=== PATIENT | male | born 1960 | race Caucasian/White ===

== ENCOUNTER 2024-01-15 06:14 | Day surgery (SDC) | payer OTHER, SELFPAY ==
[2024-01-15 08:05] VITALS: BMI 35.4
[2024-01-15 08:21] VITALS: BP 160/82
[2024-01-15 08:30] VITALS: BMI 35.4
[2024-01-15 10:30] VITALS: BP 136/72
[2024-01-15 10:31] VITALS: BP 136/72
[2024-01-15 10:45] VITALS: BP 120/74
[2024-01-15 11:00] VITALS: BP 122/72
== END 2024-01-15 11:00 | disposition home or self-care (01) ==
LOC: GI 06:14
PROVIDERS: ATTENDING PHYSICIAN Specialist
DX: Z12.11 Encounter for screening for malignant neoplasm of colon (principal); D12.3 Benign neoplasm of transverse colon; D12.4 Benign neoplasm of descending colon; K63.5 Polyp of colon; K57.30 Diverticulosis of large intestine without perforation or abscess without bleeding; Z86.010 Personal history of colon polyps; Z98.0 Intestinal bypass and anastomosis status; Z79.01 Long term (current) use of anticoagulants
CPT/HCPCS: 45385; 45380; 88305

== ENCOUNTER → 2025-04-29 07:21 | Outpatient (REF) | payer OTHER, SELFPAY | LOC: MRI 3T 07:21 | PROVIDERS: ATTENDING PHYSICIAN Specialist; FAMILY PHYSICIAN Internal Medicine | DX: R97.20 Elevated prostate specific antigen [PSA] (principal) | CPT/HCPCS: 72197; A9575 ==

== ENCOUNTER 2025-05-14 21:50 | Inpatient (IN) | payer OTHER, SELFPAY ==
[2025-05-14] VITALS (16 sets, daily range): BP systolic 70–114; BP diastolic 42–84; PULSE 4–122; BMI 35.8
[2025-05-14] MEDS: DUONEB 9 ML INH (17:39)
--- NOTE | 2025-05-14 17:42 | ED.GENMED ---
History of Present Illness
<DANIEL Ellis Jr. Last Filed: 05/14/25 20:09>
General
Chief Complaint: Breathing Problem
Source: patient and ambulance crew
Exam Limitations: none
Time Seen by Provider: 05/14/25 17:31
Nursing documentation reviewed up to this point in time: agreed with
History of Present Illness
History of Present Illness:
65-year-old male past ministry of COPD, A-fib currently on Xarelto, hypertension, cardiomyopathy presenting to the emergency department today with concerns of shortness of breath that seem to be abrupt today also noted to have a low-grade fever
according to EMS. Of note also had a prostate biopsy yesterday but was not fully sedated for this.
Past History
<Terrence Alvarez Jr., PA-C - Last Filed: 05/14/25 20:09>
Past History
ED Past Medical History: Arrthythmia (Paroxysmal atrial fibrillation), Asthma, COPD, GERD, HTN, Hypercholesterolemia and Other (Villous adenoma colon polyp)
ED Past Surgical History: Bowel resection (Transverse colon resection 12/18/2011, for removal of villous adenomatous polyp), Cardiac (Radiofrequency ablation of A. fib) and Cholecystectomy
Social History
Tobacco: Smoker
Alcohol: None
Drug: None
Personal:
Living: with family
Employment: Employed
Family History
Family History: Hypertension
Review of Systems
<DANIEL Ellis Jr. Last Filed: 05/14/25 20:09>
Review of Systems
Allergies reviewed?: Yes
All Other Systems: ROS reviewed and negative except as documented in HPI and ROS
Phy Exam
<DANIEL Ellis Jr. Last Filed: 05/14/25 20:09>
Physical Exam
Physical Exam:
GENERAL: Alert ,
EYE: pupils equal and reactive
NECK: Supple, no significant adenopathy.
ENT: o/p clr, mmm.
CARDIAC: Regular rate and rhythm .
LUNGS: Decreased lung sounds appears to have some distress with breathing out
ABDOMEN: Soft, without focal tenderness, no r/g, no cvat
NEUROLOGICAL: Alert and oriented, no focal neuro deficits
SKIN: Warm and dry, skin intact.
MUSCULOSKELETAL: No edema, well perfused.
PSYCH: Normal and appropriate interaction.
Scores
<Terrence Alvarez Jr., PA-C - Last Filed: 05/14/25 20:09>
Heart Failure Risk
Heart Failure Risk Score: Not Applicable
Course
<Terrence Alvarez Jr., PA-C - Last Filed: 05/14/25 20:09>
Orders/Labs/Results
Orders:
Orders
05/14/25 17:31
CR Chest Portable - 1 View Urgent
Comment:
Reason For Exam: resp distress
Reason Study Needs to be Portable: Patient Unstable
05/14/25 17:32
Electrocardiogram (*1) Stat
Reason for Study: Other
Other Reason for Exam: pneumonia
Cardiac Monitoring- Treatment ONCE
EKG- Treatment ONCE
Ipratropium/Albuterol Sulfate [Duoneb] 9 ml INH R NOW ONE
05/14/25 17:45
COVID-19 Antigen Urgent
Source: Nasal Swab
Complete Blood Count/With Diff Urgent
Comprehensive Metabolic Panel Urgent
Lactic Acid Q4H
Comment: CANCEL 2nd LACTIC ACID IF 1st LACTIC ACID IS LESS THAN 2
NT-proBNP Urgent
Troponin I Urgent
05/14/25 18:25
0.9% Sodium Chloride 1000 ml [Nss] 1,000 ml IV BOLUS
CefTRIAXone [Rocephin] 2,000 mg IV NOW STA
05/14/25 18:30
Sterile Water [Sterile Water For Injection] 20 ml .ROUTE .STK-MED
05/14/25 18:37
Acetaminophen 1000MG/100Ml [Ofirmev] 1,000 mg in 100 ml IV ONCE
Acetaminophen IV Indication:: No KS & No Enteral Access
05/14/25 18:51
Doxycycline Hyclate [Vibramycin] 100 mg 0.9% Sodium Chloride 250 ml [Nss] 250 ml IV NOW
05/14/25 19:01
MetroNIDAZOLE 500 MG/100 ML [Flagyl 500 mg] 100 ml IV NOW
05/14/25 19:07
Vancomycin [Vancocin] 2,000 mg 0.9% Sodium Chloride 500 ml [Nss] 500 ml IV NOW
05/14/25 19:12
Urinalysis Reflex To Culture Urgent
Date Specimen was Collected: 05/14/25
Time Specimen was Collected: 19:01
Urine Microscopic Reflex Cult Urgent
Urine Culture Urgent
ROSAMARIA Source: U
Specimen Description:
Date Specimen was Collected: 05/14/25
Time Specimen was Collected: 19:01
05/14/25 20:50
Admit/Transfer Patient As Directed
Co-Sign Provider:
Level of Care: Inpatient admission
Assign to:: IMU- Intermediate Care
Physician / Group: Leta Morales
Diagnosis: sepsis, prostatitis
Reason for Hospitalization: sepsis, prostatitis
Expected length of stay greater than two midnights?: Yes
ELOS- Estimated Length of Stay in days: 3
I certify the patient meets the requirements for IP care: Yes
PRN Pain Medication Management As Directed
May give lesser potent ordered pain med per pt: Yes
preference::
Protocol:: Medication orders for pain may be administered in a
manner that supports deferring to patient preference
when the pt is:
- Requesting an ordered lesser potent pain medication.
Least to most potent pain medications are defined
as: acetaminophen < NSAID < tramadol < opioids
(morphine, oxycodone, hydromorphone).
- Requesting a lesser dose of the same medication IF
ORDERED.
- Requesting a less intrusive route of administration
if both routes are prescribed by the provider (PO <
IV).
05/14/25 20:52
Code Status As Directed
Resuscitation Status: Full Code
05/14/25 22:02
0.9% Sodium Chloride 1000 ml [Nss] 1,000 ml IV 100 mls/hr
05/14/25 23:14
Lactic Acid Q4H
Comment: CANCEL 2nd LACTIC ACID IF 1st LACTIC ACID IS LESS THAN 2
05/17/25 11:00
DC Protocol for Telemetry ONCE
Abnormal Lab Results
05/14/25 05/14/25
17:45 19:12
WBC 3.4 L 10^3/uL
(4.8-10.8)
RBC 4.05 L 10^6/uL
(4.70-6.10)
Hgb 12.1 L g/dL
(13.0-18.0)
Hct 36.9 L %
(39.0-52.0)
MCHC 32.8 L g/dL
(33.0-37.0)
Absolute Lymphs (auto) 0.4 L 10^3/uL
(1.2-3.4)
Absolute Monos (auto) 0.0 L 10^3/uL
(0.1-0.6)
Neutrophils % 85.7 H %
(42.2-75.2)
Lymphocytes % 10.5 L %
(20.5-51.1)
Monocytes % 0.6 L %
(1.7-9.3)
Carbon Dioxide 31 H mmol/L
(22-30)
Creatinine 0.6 L mg/dL
(0.7-1.3)
Lactic Acid 2.3 H mmol/L
(0.7-2.0)
Ur Occult Blood Reflex 4+ A
(Negative)
Leukocyte Esterase Rfl 3+ A
(Negative)
Urine RBC >100 A /HPF
(0-2)
Urine WBC (Reflex) 40-50 A /HPF
(0-5)
Urine Bacteria (Reflex) Moderate A
(Negative)
Urine Albumin (Reflex) 2+ A
(Neg - Trace)
05/14/25 17:45
05/14/25 17:45
Vital Signs
Initial and Last Documented VS:
Initial Vital Signs
Temp Pulse Resp BP Pulse Ox
101.2 F H 123 30 114/84 92
05/14/25 17:37 05/14/25 17:37 05/14/25 17:37 05/14/25 17:37 05/14/25 17:37
Last Documented Vital Signs
Temp Pulse Resp BP Pulse Ox
101.2 F H 79 27 82/53 98
05/14/25 17:37 05/14/25 23:30 05/14/25 23:30 05/14/25 23:25 05/14/25 23:30
<Nader Hernandez, DO - Last Filed: 05/14/25 23:39>
Orders/Labs/Results
Orders:
Orders
05/14/25 17:31
CR Chest Portable - 1 View Urgent
Comment:
Reason For Exam: resp distress
Reason Study Needs to be Portable: Patient Unstable
05/14/25 17:32
Electrocardiogram (*1) Stat
Reason for Study: Other
Other Reason for Exam: pneumonia
Cardiac Monitoring- Treatment ONCE
EKG- Treatment ONCE
Ipratropium/Albuterol Sulfate [Duoneb] 9 ml INH R NOW ONE
05/14/25 17:45
COVID-19 Antigen Urgent
Source: Nasal Swab
Complete Blood Count/With Diff Urgent
Comprehensive Metabolic Panel Urgent
Lactic Acid Q4H
Comment: CANCEL 2nd LACTIC ACID IF 1st LACTIC ACID IS LESS THAN 2
NT-proBNP Urgent
Troponin I Urgent
05/14/25 18:25
0.9% Sodium Chloride 1000 ml [Nss] 1,000 ml IV BOLUS
CefTRIAXone [Rocephin] 2,000 mg IV NOW STA
05/14/25 18:30
Sterile Water [Sterile Water For Injection] 20 ml .ROUTE .STK-MED
05/14/25 18:37
Acetaminophen 1000MG/100Ml [Ofirmev] 1,000 mg in 100 ml IV ONCE
Acetaminophen IV Indication:: No KS & No Enteral Access
05/14/25 18:51
Doxycycline Hyclate [Vibramycin] 100 mg 0.9% Sodium Chloride 250 ml [Nss] 250 ml IV NOW
05/14/25 19:01
MetroNIDAZOLE 500 MG/100 ML [Flagyl 500 mg] 100 ml IV NOW
05/14/25 19:07
Vancomycin [Vancocin] 2,000 mg 0.9% Sodium Chloride 500 ml [Nss] 500 ml IV NOW
05/14/25 19:12
Urinalysis Reflex To Culture Urgent
Date Specimen was Collected: 05/14/25
Time Specimen was Collected: 19:01
Urine Microscopic Reflex Cult Urgent
Urine Culture Urgent
ROSAMARIA Source: U
Specimen Description:
Date Specimen was Collected: 05/14/25
Time Specimen was Collected: 19:01
05/14/25 20:50
Admit/Transfer Patient As Directed
Co-Sign Provider:
Level of Care: Inpatient admission
Assign to:: IMU- Intermediate Care
Physician / Group: Leta Morales
Diagnosis: sepsis, prostatitis
Reason for Hospitalization: sepsis, prostatitis
Expected length of stay greater than two midnights?: Yes
ELOS- Estimated Length of Stay in days: 3
I certify the patient meets the requirements for IP care: Yes
PRN Pain Medication Management As Directed
May give lesser potent ordered pain med per pt: Yes
preference::
Protocol:: Medication orders for pain may be administered in a
manner that supports deferring to patient preference
when the pt is:
- Requesting an ordered lesser potent pain medication.
Least to most potent pain medications are defined
as: acetaminophen < NSAID < tramadol < opioids
(morphine, oxycodone, hydromorphone).
- Requesting a lesser dose of the same medication IF
ORDERED.
- Requesting a less intrusive route of administration
if both routes are prescribed by the provider (PO <
IV).
05/14/25 20:52
Code Status As Directed
Resuscitation Status: Full Code
05/14/25 22:02
0.9% Sodium Chloride 1000 ml [Nss] 1,000 ml IV 100 mls/hr
05/14/25 23:14
Lactic Acid Q4H
Comment: CANCEL 2nd LACTIC ACID IF 1st LACTIC ACID IS LESS THAN 2
05/17/25 11:00
DC Protocol for Telemetry ONCE
Abnormal Lab Results
05/14/25 05/14/25
17:45 19:12
WBC 3.4 L 10^3/uL
(4.8-10.8)
RBC 4.05 L 10^6/uL
(4.70-6.10)
Hgb 12.1 L g/dL
(13.0-18.0)
Hct 36.9 L %
(39.0-52.0)
MCHC 32.8 L g/dL
(33.0-37.0)
Absolute Lymphs (auto) 0.4 L 10^3/uL
(1.2-3.4)
Absolute Monos (auto) 0.0 L 10^3/uL
(0.1-0.6)
Neutrophils % 85.7 H %
(42.2-75.2)
Lymphocytes % 10.5 L %
(20.5-51.1)
Monocytes % 0.6 L %
(1.7-9.3)
Carbon Dioxide 31 H mmol/L
(22-30)
Creatinine 0.6 L mg/dL
(0.7-1.3)
Lactic Acid 2.3 H mmol/L
(0.7-2.0)
Ur Occult Blood Reflex 4+ A
(Negative)
Leukocyte Esterase Rfl 3+ A
(Negative)
Urine RBC >100 A /HPF
(0-2)
Urine WBC (Reflex) 40-50 A /HPF
(0-5)
Urine Bacteria (Reflex) Moderate A
(Negative)
Urine Albumin (Reflex) 2+ A
(Neg - Trace)
05/14/25 17:45
05/14/25 17:45
Vital Signs
Initial and Last Documented VS:
Initial Vital Signs
Temp Pulse Resp BP Pulse Ox
101.2 F H 123 30 114/84 92
05/14/25 17:37 05/14/25 17:37 05/14/25 17:37 05/14/25 17:37 05/14/25 17:37
Last Documented Vital Signs
Temp Pulse Resp BP Pulse Ox
101.2 F H 79 27 82/53 98
05/14/25 17:37 05/14/25 23:30 05/14/25 23:30 05/14/25 23:25 05/14/25 23:30
<Terrence Alvarez Jr., PA-C - Last Filed: 05/14/25 20:09>
MDM/Problems Addressed
MDM/Problems Addressed:
65-year-old male presenting to the emergency department today with concerns of shortness of breath occurred this morning coming in with respiratory distress tachypneic febrile heart rate in the 120s. Patient did have a recent biopsy so prostatitis
was considered. Urinalysis looking potentially consistent with urinary tract infection and potentially from the prostate. Was started on broad-spectrum antibiotics including anaerobes vancomycin as well as ceftriaxone. Respiratory status seem to
improve greatly after receiving fluids and antibiotics. Respiratory process causing primary symptoms seems to be less likely at this point. Patient with significant improvement of symptoms while here. Admitted for further treatment and monitoring.
<Terrence Alvarez Jr., PA-C - Last Filed: 05/14/25 20:09>
*Pulse Oximetry
SaO2: 92
Nasal Cannula flow liters per minute: 4
<Nader Hernandez DO - Last Filed: 05/14/25 23:39>
*Pulse Oximetry
Patient hypoxic: yes
*Critical Care Note
Total Time (30-74mins, 75-104mins- exclusive of procedures): 40 minutes
ED Attending Note
<Terrence Alvarez Jr., PA-C - Last Filed: 05/14/25 20:09>
-
Portions of this chart may have been created with voice recognition software.� Occasional wrong word or��sound alike� substitutions may have occurred due to the inherent limitations of voice recognition software.
<Nader Hernandez DO - Last Filed: 05/14/25 23:39>
ED Attending Note
Patient seen and examined by attending physician: Yes
I performed the substantive portion of visit, reviewed & personally made and approve the management plan that is documented in note by myself or ROHIT.: Yes
ED Attending Note:
66-year-old male present acutely short of breath does have history COPD and suspect COPD exacerbation however also found to be febrile and in light of recent prostate biopsy concern for urinary tract infection/prostatitis. In light of evidence of
sepsis given IV fluids, broad-spectrum antibiotics blood culture sent. Admit
Discharge Plan
Departure
Patient Disposition: Admit
Date of Disposition: 05/14/25
Time of Disposition: 20:00
Admit to: Med/Surg
Admit to doctor: Carmen
Presentation/result/management discussed w/ accepting MD/DO: Hospitalist
Patient with high blood pressure during this ER visit?: No
Condition: Good
Covid-19: Not Applicable
Discharge Problem:
Acute prostatitis, Sepsis, Acute exacerbation of chronic obstructive pulmonary disease
Interventions
Interventions:
*Risk Screen - Suicide Last Done: 05/14/25 17:30
*General Assessment Last Done: 05/14/25 17:30
*Neglect/Abuse Screening Last Done: 05/14/25 17:30
*ED- Fall Risk Assessment Last Done: 05/14/25 17:30
*ED COVID-19 Vaccine History Last Done: 05/14/25 17:30
ED- Cardiac Assessment Last Done: 05/14/25 18:19
ED- Pulmonary Assessment Last Done: 05/14/25 18:19
[2025-05-14 17:53] LABS: Hematocrit 36.9 % (39.0-52.0); Hemoglobin 12.1 g/dL (13.0-18.0); Mean Corp Hgb Conc. 32.8 g/dL (33.0-37.0); Mean Corpuscular Volume 91.1 fL (80.0-94.0); Nucleated Red Blood Cells % 0 % (-); Platelet Count 186 10^3/uL (130-400); Red Cell Dist. Width 13.6 % (11.5-14.5)
[2025-05-14 18:08] LABS: ALT (SGPT) 17 U/L (0-50); AST (SGOT) 28 U/L (17-59); Albumin 4.6 g/dl (3.5-5.0); Alkaline Phosphatase 85 U/L (38-126); Blood Urea Nitrogen 15 mg/dl (9-20); Calcium 9.3 mg/dl (8.4-10.2); Carbon Dioxide 31 mmol/L (22-30); Chloride 99 mmol/L (98-107); Estimated Creatinine Clearance > 125 ml/min; Glucose 82 mg/dl (70-99); Potassium 3.9 mmol/L (3.5-5.1); Sodium 138 mmol/L (135-145); Total Protein 7.2 g/dl (6.3-8.2); eGFR > 60.00
[2025-05-14 18:09] LABS: COVID-19 Antigen Negative (Negative)
[2025-05-14 18:18] LABS: Troponin I < 0.012 ng/ml
[2025-05-14] MEDS: ROCEPHIN 2000 MG IV (18:34)
[2025-05-14] MEDS: NSS 1000 IV ×3 (18:34→23:05)
[2025-05-14] MEDS: OFIRMEV 100 IV (18:47)
[2025-05-14] MEDS: FLAGYL 500 MG 100 IV (19:05)
[2025-05-14 19:27] LABS: Urine Character Cloudy (Clear)
[2025-05-14 19:43] LABS: Urine Red Blood Cell >100 /HPF (0-2); Urine Squamous Cell 0-2 /LPF (Few)
[2025-05-14 19:44] LABS: Urine White Cell 40-50 /HPF (0-5)
--- NOTE | 2025-05-14 19:55 | HPS.HSE ---
Family Physician
-
Family Physician: Mark Norwood
Chief Complaint
-
shortness of breath and rigors
History of Present Illness
Patient is a 65-year-old male with past medical history significant for paroxysmal atrial fibrillation, chronic HFpEF, essential hypertension, hyperlipidemia and COPD who presented to [facility] ED for evaluation of shortness of breath and rigors. Patient
states that he was at store earlier today when he had an abrupt onset of shortness of breath with rigors. By the time he got home he had call 911 as he was 'shaking so bad, I never danced like that before.' He reports biopsy yesterday of
prostate. He stated that he was started on an antibotic on Sunday prior to procedure and was scheduled to complete it Sunday, he did not recall name, said he has taken as prescribed.
Medical History
Past Medical History
Past Medical History: Reports Other
Additional Past Medical History:
paroxysmal atrial fibrillation
chronic HFpEF
essential hypertension
hyperlipidemia
COPD
obstructive sleep apnea
colon cancer
Past Surgical History: Reports Other
Additional Past Surgical History:
Cervical Laminectomy
Lumbosacral Laminectomy / Fusion
Colon Resection
Cholecystectomy
Social History
Tobacco: Smoker (2 packs per day, approximate 100 pack year history )
Alcohol: Daily (few highballs per day, no alcohol today )
Drug: None
Personal:
Living: With Family
Employment: Retired
Family History
Family History: Other (Mother: Lung Cancer; Father: CAD, DM, HTN, Alcohol-Use Disorder, Throat Cancer)
Allergies / Home Medications
Allergies reflects when Allergies were last updated in [facility].
Home Medications with original date entered in [facility]
Allergy/Medication List:
Allergies
Allergy/AdvReac Type Severity Reaction Status Date / Time
Beta-Blockers Allergy Anaphylaxis Verified 05/14/25 17:34
(Beta-Adrenergic Bloc
clarithromycin Allergy Rash Verified 05/14/25 17:34
(Clarithromycin)
fluticasone propionate (From Allergy mouth Verified 05/14/25 17:34
Advair Diskus) became
sensitive,
burning
salmeterol xinafoate (From Allergy mouth Verified 05/14/25 17:34
Advair Diskus) became
sensitive,
burning
Home Medications
atorvastatin 40 mg tablet 40 mg PO DAILY High Cholesterol 10/25/12
rivaroxaban 20 mg tablet (Xarelto) 20 mg PO DAILY atrial fibrillation 03/30/18
omeprazole 20 mg capsule,delayed release 20 mg PO DAILY Gastrointestinal Issue 10/17/18
verapamil 120 mg tablet,extended release 120 mg PO DAILY Blood Pressure 10/17/18
furosemide 40 mg tablet 40 mg PO DAILY Fluid Retention/Swelling 05/30/19
levalbuterol HCl 1.25 mg/3 mL solution for nebulization 1.25 mg inhalation R Q6 COPD 09/10/23
lisinopril 10 mg tablet 10 mg PO DAILY Blood Pressure 09/10/23
guaifenesin 600 mg tablet, extended release 12 hr (Mucinex) 600 mg PO BID #20 tabs 09/12/23
ascorbate calcium (vitamin C) 500 mg tablet 1,000 mg PO DAILY 05/14/25
fluticasone fur. 100 mcg-umeclid 62.5 mcg-vilant 25 mcg inhalat.powder (Trelegy Ellipta) 1 inh inhalation R DAILY 05/14/25
psyllium 1 packet PO DAILY 05/14/25
Review of Systems
-
History Source: Patient
Constitutional: Reports Fever and Chills
EENT: Denies Sore Throat
Respiratory: Reports Cough and Trouble Breathing
Cardiac: Denies Chest Pain or Palpitations
Abdomen/GI: Denies Nausea, Vomiting or Diarrhea
: Denies Dysuria, Frequency or Flank Pain
Neurological: Denies Dizzy or Weakness
Endocrine: Denies Polyuria or Polydipsia
Psych: Reports Anxiety
Physical Exam
Vital Signs
Vital Signs
Temp Pulse Resp BP Pulse Ox
101.2 F H 107 24 92/53 95
05/14/25 17:37 05/14/25 19:30 05/14/25 19:30 05/14/25 18:18 05/14/25 19:30
Physical Exam
General: Well Developed, Well Nourished, No Apparent Distress, Conversant and Obese
HEENT: NormoCephalic, Moist mucous membranes and Atraumatic
Respiratory: Clear and Decreased Breath Sounds
Cardiac: S1/S2 and Regular Rhythm
Breast: Deferred by me
GI: Soft, Non Tender, Non Distended and Normal Bowel Sounds; No Organomegaly
Rectal: Deferred by Provider
Genito-urinary: Deferred by me
Musculoskeletal: No Clubbing, No Cyanosis and No Edema
Skin: Warm and IV/Catheter Site
Neuro: Awake, AO x 3 and Nonfocal/grossly intact
Psych: Anxious
Laboratory Results
-
05/14/25 17:45
05/14/25 17:45
Laboratory Results
Lactic Acid 2.3 mmol/L (0.7-2.0) H 05/14/25 17:45
Total Bilirubin 0.8 mg/dl (0.2-1.3) 05/14/25 17:45
AST 28 U/L (17-59) 05/14/25 17:45
ALT 17 U/L (0-50) 05/14/25 17:45
Alkaline Phosphatase 85 U/L (38-126) 05/14/25 17:45
Troponin I < 0.012 ng/ml 05/14/25 17:45
Data Reviewed
-
Diagnostic Radiology: Report Reviewed by me (CXR: Mild pulmonary vascular congestion.)
Medical Tests (Nuc Med, Echo, EKG etc): Report Reviewed by me (KG: SINUS TACHYCARDIA LEFT ANTERIOR FASCICULAR BLOCK ST and T WAVE ABNORMALITY, CONSIDER INFEROLATERAL ISCHEMIA)
Lab Data: Labs Reviewed by me (WBC 3.4, Neut 85.7, lactic 2.3)
Impression/Plan
-
IMPRESSION/PLAN:
#sepsis likely 2/2 prostatitis
WBC 3.4, Neut 85.7, lactic 2.3
CXR: Mild pulmonary vascular congestion.
EKG: SINUS TACHYCARDIA
LEFT ANTERIOR FASCICULAR BLOCK
ST and T WAVE ABNORMALITY, CONSIDER INFEROLATERAL ISCHEMIA
prostate biopsy yesterday 05/14/2025
- Admit to IMU
- IV zosyn
- IVF NSS 80cc/hr
- trend lactic acid
- supportive care
#paroxysmal atrial fibrillation
- continue Xarelto and verapamil
#chronic HFpEF
- daily weights
- I & Os
- continue furosemide
#essential hypertension
- continue lisinopril
#hyperlipidemia
- continue atorvastatin
#COPD
- continue Trelegy, Mucinex and levalbuterol
#obstructive sleep apnea
#colon cancer
Code status: full code
DVT Prophylaxis: Xarelto
[2025-05-14] MEDS: VANCOCIN 540 MG IV (20:10)
--- NOTE | 2025-05-14 20:58 | W.PN.UPDATE ---
Update Note
Progress Note Update
Patient seen with [employer]. I agree with the findings on history and physical. I concur with assessment and plan.
Briefly, this is a 65-year-old with past medical history significant for atrial fibrillation on anticoagulation, COPD on 2 L nocturnal home O2, hypertension, hyperlipidemia, diastolic CHF who presents to the emergency department with fevers rigors
and chills after having a prostatic biopsy yesterday.
Patient reported that he been on prophylactic antibiotics since Sunday. Had a procedure done yesterday. [place] well immediately after procedure but today patient started having rigors and chills and felt short of breath at the same time. He denied
any cough. Denies any palpitations or chest pain. He did have some episode of hematuria after the procedure but not currently.
He arrived in the emergency department with temp of 100.9, now 101.2, blood pressure was 90/50 with a pulse rate of 101. Is satting 88% on room air. His ECG shows sinus tachycardia at a rate of 103, troponin was negative. X-ray shows no pulmonary
congestion but otherwise unremarkable. CBC shows a leukopenia with a white count of 3.4 but otherwise CBC is unremarkable. His electrolytes BUN/creatinine were normal. His UA was markedly positive except for negative nitrites.
Assessment and plan
Patient with acute onset of fever chills and rigors, leukopenia and positive UA status post prostate biopsy concerning for acute iatrogenic prostatitis. He been on antibiotics since Sunday for prevention. Sepsis with hypotension.
- Admit to IMU
- Blood cultures, urine culture
- IV Zosyn for now for acute prostatitis in the setting of prostatic biopsy (rectal approach)
- IV fluids for sepsis and started low dose pressors
- holding lisinopril and lasix
COPD -patient with chronic emphysema on nocturnal home O2 currently satting 88% on room air without any acute pulmonary changes. He is not wheezing and has no new productive cough. Do not suspect acute COPD exacerbation
- Zosyn as above
- Continue his home inhalers and no indication for acute steroids at this time
Atrial fibrillation
- Restart Xarelto 48 hours after procedure
- on verapamil (will hold in am if remains on pressors)
Hypertension
- Hold lisinopril for now
Diastolic heart failure -euvolemic
- Monitor I's and O's
- Continue Lasix in the morning with hold parameters for SBP less than 100
DVT prophylaxis�on Xarelto, while not taking Xarelto continue with heparin subcu
CODE STATUS�full code
[2025-05-14] MEDS: LEVOPHED 250 IV (23:06)
[2025-05-15] VITALS (38 sets, daily range): BP systolic 87–121; BP diastolic 48–73; BMI 36.6; BMI 36.2
--- NOTE | 2025-05-15 00:10 | PTCARENOTE ---
Pt arrived to floor on stretcher from ED. Slid over to bed with assistance. NSS bolus infusing into RAC and Levophed @ 3mcg infusing into RFA; BP checked and MAP < 65, increased levo to 4mcg. Pt denies pain however reports abdominal discomfort
related to gas and recent loose stool. Pt AAO x 3; Pt dyspenic at rest and noted pursed lipped breathing, Lungs with ins wheeze and rhonchi throughout. Pt oriented to room, call lynch within reach. Will continue to monitor and assess.
[2025-05-15] MEDS: ZOSYN 50 IV ×4 (02:20→21:46)
[2025-05-15 05:33] LABS: Hematocrit 31.6 % (39.0-52.0); Hemoglobin 10.4 g/dL (13.0-18.0); Mean Corp Hgb Conc. 32.9 g/dL (33.0-37.0); Mean Corpuscular Volume 92.1 fL (80.0-94.0); Platelet Count 172 10^3/uL (130-400); Red Cell Dist. Width 14.1 % (11.5-14.5)
[2025-05-15 05:49] LABS: Blood Urea Nitrogen 22 mg/dl (9-20); Calcium 7.8 mg/dl (8.4-10.2); Carbon Dioxide 26 mmol/L (22-30); Chloride 103 mmol/L (98-107); Estimated Creatinine Clearance 83 ml/min; Glucose 113 mg/dl (70-99); Potassium 3.6 mmol/L (3.5-5.1); Sodium 136 mmol/L (135-145); eGFR > 60.00
[2025-05-15] MEDS: DUONEB 3 ML INH (06:05)
[2025-05-15] MEDS: SPIRIVA RESPIMAT 2.5 MCG INH (07:35)
[2025-05-15] MEDS: SYMBICORT 80/4.5 MCG INHALER 2 PUFF INH ×2 (07:36→19:22)
[2025-05-15] MEDS: MUCINEX 600 MG PO ×2 (08:22→19:37)
[2025-05-15] MEDS: METAMUCIL, KONSYL 1 PACKET PO (08:22)
[2025-05-15] MEDS: XARELTO 20 MG PO (08:22)
[2025-05-15] MEDS: PROTONIX 40 MG PO (08:22)
[2025-05-15] MEDS: LIPITOR 40 MG PO (08:22)
--- NOTE | 2025-05-15 09:02 | W.PN.HOSP.TC ---
Today's Communication/Plan
-
Continue with Zosyn
Blood cultures x 2
Possible transfer to telemetry
Assessment / Plan
Assessment / Plan
Assessment and plan
Patient with acute onset of fever chills and rigors, leukopenia and positive UA status post prostate biopsy concerning for acute iatrogenic prostatitis. He been on antibiotics since Sunday for prevention. Sepsis with hypotension.
- Improved hemodynamics. Currently vasopressors on hold to see blood pressure response.
- Urine culture pending. Do not see blood cultures send-ordered set of blood cultures this morning.
- Continue with IV Zosyn for now for acute prostatitis in the setting of prostatic biopsy (rectal approach). Do not see the reason for MRSA coverage as patient already improving with 24 hours on Zosyn
- Follow culture data. Follow white count.
- holding lisinopril and lasix
COPD -patient with chronic emphysema on nocturnal home O2 currently satting 88% on room air without any acute pulmonary changes. He is not wheezing and has no new productive cough. Do not suspect acute COPD exacerbation
- Zosyn as above
- Continue his home inhalers and no indication for acute steroids at this time
Atrial fibrillation
- Restart Xarelto 48 hours after procedure
- on verapamil-hold till hemodynamics are stable
Hypertension
- Hold lisinopril for now
Diastolic heart failure -euvolemic
- Monitor I's and O's
- Continue Lasix with hold parameters for SBP less than 100
DVT prophylaxis�on Xarelto, while not taking Xarelto continue with heparin subcu
CODE STATUS�full code
Discussed with RN
Transferred to telemetry if hemodynamics remain stable today
Anticipated Discharge: > 48 hours
Subjective/Interval History
-
Date of Service: May 15, 2025
Feeling better today without any rigors.
Shortness of breath has also resolved.
Objective Data
-
Labs:
Laboratory Results
05/15/25
05:16
WBC 22.7 H
Hgb 10.4 L
Hct 31.6 L
Plt Count 172
Sodium 136
Potassium 3.6
Chloride 103
Carbon Dioxide 26
BUN 22 H
Creatinine 1.1
Glucose 113 H
Calcium 7.8 L D
Vital Signs:
Vital Signs
Temp Pulse Resp BP Pulse Ox
97.9 F 72 16 101/60 98
05/15/25 07:00 05/15/25 07:45 05/15/25 07:45 05/15/25 07:00 05/15/25 07:45
I&O
05/14/25 05/15/25 05/16/25
06:59 06:59 06:59
Intake Total 480 / 480
Output Total 100 / 100
Balance 380 / 380
Physical Exam
-
General: Comfortable
Respiratory: Clear to Auscultation and Non Labored Respirations; Negative Wheezes, Crackles or Accessory Resp Muscle Use
Cardiac: Regular Rhythm and S1/S2; Negative Tachycardic
GI: Soft
Neuro: AO x 3
Psych: Calm; Negative Confused
Data Reviewed
-
Labs: Labs Reviewed by me
[2025-05-15] MEDS: VENTOLIN NEBULES 2.5 MG INH ×3 (11:31→19:22)
[2025-05-15] MEDS: CALCIUM GLUCONATE 100 IV (12:45)
[2025-05-15] MEDS: TYLENOL 650 MG PO ×2 (12:45→23:01)
--- NOTE | 2025-05-15 15:30 | PTCARENOTE ---
Assumed care of patient this morning. He has been walking back and forth to bathroom with RW and x1 assist. Pt received on 2L NC, while awake patient can be weaned to RA but while sleeping this afternoon, pt's SPO2 dropped to 83% and improved to 95%
with 2L NC. Patient had a fair appetite today. He did have on loose BM on toilet, otherwise using urinal as needed. Pt medicated with Tylenol for a headache, see MAR.
[2025-05-15] MEDS: MELATONIN 5 MG PO (19:37)
--- NOTE | 2025-05-15 22:12 | PTCARENOTE ---
Pt received at beginning of shift sitting up at side of bed finishing dinner. AAOx3. Admits to slight headache but denies need for pain med. VSS. Afebrile. SR on CM. POX 98% on 2L NC. Requested Melatonin for sleep. aLnce CAMPBELL TT'd and order entered
for Melatonin and pt received as ordered. Exp wheeze noted to left lung. Using urinal at bedside with UO so far 500mls. Skin intact. Rest of assessment as documented. Turns self in bed. Call lynch within reach. Will continue to monitor.
[2025-05-16] VITALS (15 sets, daily range): BP systolic 92–119; BP diastolic 43–65; BMI 36.2
[2025-05-16] MEDS: ZOSYN 50 IV ×4 (03:26→21:26)
[2025-05-16 03:56] LABS: Hematocrit 29.4 % (39.0-52.0); Hemoglobin 9.7 g/dL (13.0-18.0); Mean Corp Hgb Conc. 33.0 g/dL (33.0-37.0); Mean Corpuscular Volume 91.9 fL (80.0-94.0); Platelet Count 129 10^3/uL (130-400); Red Cell Dist. Width 14.1 % (11.5-14.5)
[2025-05-16 04:09] LABS: Blood Urea Nitrogen 22 mg/dl (9-20); Calcium 8.1 mg/dl (8.4-10.2); Carbon Dioxide 27 mmol/L (22-30); Chloride 104 mmol/L (98-107); Estimated Creatinine Clearance > 125 ml/min; Glucose 134 mg/dl (70-99); Potassium 3.4 mmol/L (3.5-5.1); Sodium 135 mmol/L (135-145); eGFR > 60.00
[2025-05-16] MEDS: SPIRIVA RESPIMAT 2.5 MCG 2 PUFF INH (07:22)
[2025-05-16] MEDS: SYMBICORT 80/4.5 MCG INHALER 2 PUFF INH ×2 (07:22→18:25)
[2025-05-16] MEDS: VENTOLIN NEBULES 2.5 MG INH ×4 (07:22→18:25)
[2025-05-16] MEDS: METAMUCIL, KONSYL 1 PACKET PO (08:18)
[2025-05-16] MEDS: XARELTO 20 MG PO (08:18)
[2025-05-16] MEDS: LIPITOR 40 MG PO (08:18)
[2025-05-16] MEDS: MUCINEX 600 MG PO ×2 (08:18→20:16)
[2025-05-16] MEDS: PROTONIX 40 MG PO (08:18)
--- NOTE | 2025-05-16 09:03 | W.PN.HOSP.TC ---
Addendum entered and electronically signed by Ross Saldana MD 05/16/25 09:10:
Hypokalemia -replete
Original Note:
Today's Communication/Plan
-
Transferred to [facility]
Assessment / Plan
Assessment / Plan
Assessment and plan
Patient with acute onset of fever chills and rigors, leukopenia and positive UA status post prostate biopsy concerning for acute iatrogenic prostatitis. He been on antibiotics since Sunday for prevention. Sepsis with hypotension.
- Resolved hypotension . Remains off of vasopressors
- Urine/blood culture pending.
- Continue with IV Zosyn for now for acute prostatitis in the setting of prostatic biopsy (rectal approach). Do not see the reason for MRSA coverage as patient already improving with 24 hours on Zosyn
- Follow culture data. Follow white count-improving.
- holding lisinopril and lasix
COPD -patient with chronic emphysema on nocturnal home O2 .currently with some exertional hypoxia. No respiratory symptoms. Do not suspect acute COPD exacerbation
- Zosyn as above
- Continue his home inhalers and no indication for acute steroids at this time
Atrial fibrillation
- Continue Xarelto
- on verapamil-hold per parameters
Hypertension
- Hold lisinopril for now
Diastolic heart failure -euvolemic
- Monitor I's and O's
- Continue Lasix with hold parameters for SBP less than 100
DVT prophylaxis�on Xarelto, while not taking Xarelto continue with heparin subcu
CODE STATUS�full code
Discussed with RN
Transfer to [facility]
Anticipated Discharge: 24 - 48 hours
Subjective/Interval History
-
Date of Service: May 16, 2025
Feels much improved.
Denies any dysuria. No pelvic or perineal pain. No fever or chills. No nausea or vomiting.
Normally uses oxygen at home at night.
With exertional activities oxygen is on the lower side. Denies any shortness of breath at rest.
Denies any cough or chest pain. No lightheadedness.
Objective Data
-
Labs:
Laboratory Results
05/16/25
03:31
WBC 12.5 H
Hgb 9.7 L
Hct 29.4 L
Plt Count 129 L D
Sodium 135
Potassium 3.4 L
Chloride 104
Carbon Dioxide 27
BUN 22 H
Creatinine 0.7
Glucose 134 H
Calcium 8.1 L
Vital Signs:
Vital Signs
Temp Pulse Resp BP Pulse Ox
98.1 F 74 16 104/65 95
05/16/25 06:34 05/16/25 07:29 05/16/25 07:29 05/16/25 06:00 05/16/25 08:52
I&O
05/15/25 05/16/25 05/17/25
06:59 06:59 06:59
Intake Total 480 / 480 2260 / 2260
Output Total 100 / 100 2150 / 2150
Balance 380 / 380 110 / 110
Physical Exam
-
General: Comfortable
Respiratory: Non Labored Respirations; Negative Wheezes, Crackles or Accessory Resp Muscle Use
Cardiac: Regular Rhythm (Sinus rhythm on the monitor) and S1/S2; Negative Tachycardic
GI: Soft
Musculoskeletal: No Edema
Neuro: AO x 3
Psych: Calm
Data Reviewed
-
Labs: Labs Reviewed by me
[2025-05-16] MEDS: KCL 40 MEQ PO (09:16)
[2025-05-16] MEDS: LASIX 40 MG PO (09:16)
[2025-05-16] MEDS: CALAN EXTENDED RELEASE 120 MG PO (11:29)
[2025-05-16] MEDS: TYLENOL 650 MG PO (20:16)
[2025-05-16] MEDS: MELATONIN 5 MG PO (21:27)
[2025-05-17] MEDS: FLUSH (NSS) 4 FLUSH IV (03:40)
[2025-05-17] MEDS: ZOSYN 50 IV ×4 (03:40→21:00)
[2025-05-17 06:00] VITALS: BMI 35.9
[2025-05-17] MEDS: SPIRIVA RESPIMAT 2.5 MCG 2 PUFF INH (07:24)
[2025-05-17] MEDS: SYMBICORT 80/4.5 MCG INHALER 2 PUFF INH ×2 (07:24→20:13)
[2025-05-17] MEDS: VENTOLIN NEBULES 2.5 MG INH ×4 (07:29→20:13)
[2025-05-17 07:36] VITALS: BP 121/61
[2025-05-17] MEDS: LIPITOR 40 MG PO (08:22)
[2025-05-17] MEDS: MUCINEX 600 MG PO ×2 (08:22→21:00)
[2025-05-17] MEDS: PROTONIX 40 MG PO (08:22)
[2025-05-17] MEDS: XARELTO 20 MG PO (08:23)
[2025-05-17] MEDS: METAMUCIL, KONSYL 1 PACKET PO (08:24)
[2025-05-17] MEDS: LASIX 40 MG PO (08:24)
[2025-05-17] MEDS: CALAN EXTENDED RELEASE 120 MG PO (08:24)
[2025-05-17] MEDS: TYLENOL 650 MG PO ×2 (11:43→21:41)
--- NOTE | 2025-05-17 14:06 | W.PN.HOSP.TC ---
Today's Communication/Plan
-
CW IV abx
Follow CX data
Assessment / Plan
Assessment / Plan
Assessment and plan
Patient with acute onset of fever chills and rigors, leukopenia and positive UA status post prostate biopsy concerning for acute iatrogenic prostatitis. He been on antibiotics since Sunday for prevention. Sepsis with hypotension.
- Resolved hypotension . Remains off of vasopressors
- Urine/blood culture still pending.
- Continue with IV Zosyn for now for acute prostatitis in the setting of prostatic biopsy (rectal approach). Do not see the reason for MRSA coverage as patient already improving with Zosyn
- Follow culture data. Follow white count-improving.
- holding lisinopril
COPD -patient with chronic emphysema on nocturnal home O2 .currently with some exertional hypoxia. No respiratory symptoms. Do not suspect acute COPD exacerbation
- Zosyn as above
- Continue his home inhalers and no indication for acute steroids at this time
Atrial fibrillation
- Continue Xarelto
- on verapamil- with parameters
Hypertension
- Hold lisinopril for now
Diastolic heart failure -euvolemic
- Monitor I's and O's
- Continue Lasix with hold parameters for SBP less than 100
DVT prophylaxis�on Xarelto, while not taking Xarelto continue with heparin subcu
CODE STATUS�full code
Anticipated Discharge: 24 - 48 hours
Subjective/Interval History
-
Date of Service: May 17, 2025
Feeling much improved compared to preadmission. No further chills or rigors.
No fever or chills.
Denies nausea or vomiting. No dysuria but stream flow is not adequate.
No diarrhea.
Denies any shortness of breath. No chest pain.
Objective Data
-
Vital Signs:
Vital Signs
Temp Pulse Resp BP Pulse Ox
99.2 F 75 18 121/61 97
08/17/25 07:36 05/17/25 11:12 05/17/25 11:12 05/17/25 08:24 05/17/25 11:12
I&O
05/16/25 05/17/25 05/18/25
06:59 06:59 06:59
Intake Total 2260 / 2260 1960 / 1960
Output Total 2150 / 2150 1750 / 1750
Balance 110 / 110 210 / 210
Physical Exam
-
General: Comfortable
Respiratory: Clear to Auscultation and Non Labored Respirations; Negative Accessory Resp Muscle Use
Cardiac: Regular Rhythm and S1/S2
GI: Soft
Neuro: AO x 3
[2025-05-17 15:27] VITALS: BP 106/48
[2025-05-17] MEDS: MELATONIN 3 MG PO (21:41)
[2025-05-17 23:09] VITALS: BP 104/54
[2025-05-18] MEDS: ZOSYN 50 IV ×2 (03:23→10:39)
[2025-05-18] MEDS: TYLENOL 650 MG PO ×2 (03:47→08:36)
[2025-05-18] MEDS: SPIRIVA RESPIMAT 2.5 MCG 2 PUFF INH (07:06)
[2025-05-18] MEDS: VENTOLIN NEBULES 2.5 MG INH ×3 (07:06→15:16)
[2025-05-18] MEDS: SYMBICORT 80/4.5 MCG INHALER 2 PUFF INH (07:06)
[2025-05-18 07:27] VITALS: BP 112/59
[2025-05-18 07:29] LABS: Blood Urea Nitrogen 12 mg/dl (9-20); Calcium 8.7 mg/dl (8.4-10.2); Carbon Dioxide 32 mmol/L (22-30); Chloride 104 mmol/L (98-107); Estimated Creatinine Clearance > 125 ml/min; Glucose 105 mg/dl (70-99); Potassium 3.8 mmol/L (3.5-5.1); Sodium 138 mmol/L (135-145); eGFR > 60.00
[2025-05-18] MEDS: LIPITOR 40 MG PO (08:27)
[2025-05-18] MEDS: CALAN EXTENDED RELEASE 120 MG PO (08:27)
[2025-05-18] MEDS: XARELTO 20 MG PO (08:27)
[2025-05-18] MEDS: METAMUCIL, KONSYL 1 PACKET PO (08:27)
[2025-05-18] MEDS: PROTONIX 40 MG PO (08:28)
[2025-05-18] MEDS: MUCINEX 600 MG PO (08:28)
[2025-05-18] MEDS: LASIX 40 MG PO (08:28)
[2025-05-18 08:45] LABS: Hematocrit 29.7 % (39.0-52.0); Hemoglobin 9.7 g/dL (13.0-18.0); Mean Corp Hgb Conc. 32.7 g/dL (33.0-37.0); Mean Corpuscular Volume 92.5 fL (80.0-94.0); Platelet Count 168 10^3/uL (130-400); Red Cell Dist. Width 13.5 % (11.5-14.5)
--- NOTE | 2025-05-18 11:27 | W.PN.HOSP.TC ---
Addendum entered and electronically signed by Ross Saldana MD 05/24/25 15:32:
Pt admitted with sepsis and hypotension needing Levophed suggestive of septic shock
Original Note:
Today's Communication/Plan
-
DC planning
Assessment / Plan
Assessment / Plan
Assessment and plan
Patient with acute onset of fever chills and rigors, leukopenia and positive UA status post prostate biopsy concerning for acute iatrogenic prostatitis. He been on antibiotics since Sunday for prevention. Sepsis with hypotension.
- Resolved hypotension . Remains off of vasopressors
- Urine shows Klebsiella aerogenes-sensitivities noted. Switch to ciprofloxacin-give the first dose IV and check an EKG this afternoon and if okay will discharge on oral ciprofloxacin. DC Zosyn. Not bacteremic.
-White count normalized.
COPD -patient with chronic emphysema on nocturnal home O2 .currently with some exertional hypoxia. No respiratory symptoms. Do not suspect acute COPD exacerbation
- Check oxygen on room air
- Continue his home inhalers and no indication for acute steroids at this time
Atrial fibrillation
- Continue Xarelto
- on verapamil- with parameters
Hypertension
- Hold lisinopril for now-resume on discharge
Diastolic heart failure -euvolemic
- Monitor I's and O's
- Continue Lasix with hold parameters for SBP less than 100
DVT prophylaxis�on Xarelto, while not taking Xarelto continue with heparin subcu
CODE STATUS�full code
DC home if EKG in the afternoon is okay
Anticipated Discharge: Today
Subjective/Interval History
-
Date of Service: May 18, 2025
Denies any dysuria or frequency.
No fever.
No nausea vomiting. Tolerating diet.
Denies shortness of breath.
No chest pain. No lightheadedness.
Objective Data
-
Labs:
Laboratory Results
05/18/25
06:37
WBC 8.0
Hgb 9.7 L
Hct 29.7 L
Plt Count 168 D
Sodium 138
Potassium 3.8
Chloride 104
Carbon Dioxide 32 H
BUN 12
Creatinine 0.5 L
Glucose 105 H
Calcium 8.7
Vital Signs:
Vital Signs
Temp Pulse Resp BP Pulse Ox
97.4 F 83 16 112/59 97
05/18/25 07:27 05/18/25 11:14 05/18/25 11:14 05/18/25 08:27 05/18/25 11:14
I&O
05/17/25 05/18/25 05/19/25
06:59 06:59 06:59
Intake Total 1960 / 1960 1200 / 1200
Output Total 1750 / 1750 1800 / 1800 450 / 450
Balance 210 / 210 -600 / -600 -450 / -450
Physical Exam
-
General: Comfortable
Respiratory: Wheezes (Occasional wheeze. Currently getting nebulizer. He has nebulizers at home. Denies shortness of breath.) and Non Labored Respirations; Negative Accessory Resp Muscle Use
Cardiac: Regular Rhythm and S1/S2; Negative Tachycardic
Neuro: AO x 3
Psych: Calm; Negative Confused
Data Reviewed
-
Labs: Labs Reviewed by me
--- NOTE | 2025-05-18 11:30 | RESPNOTE ---
Room air 02 sats at rest was checked per Dr. Saldana's verbal order
pt does have oxygen at home, using it only at night
Room air 02 sats at rest-93%
[2025-05-18] MEDS: CIPRO 400 MG 200 IV (11:43)
--- NOTE | 2025-05-18 12:44 | CM ---
CM following re: discharge planning.
Reviewed pt's chart, met with pt.
Pt is a 65 year old male, admitted with primary dx of sepsis likely 2/2 prostatitis.
Pt reports he lives with spouse in a mobile home, has supportive son. Pt described himself as independent in all areas [employer], has home Oxygen, 2L NC at baseline and managed by [facility].
Pt is aware he most likely will be discharged home today after EKG and pt expressed his agreement. Pt stated his spouse will transport home and he usually does not use supplemental Oxygen during day time, just at night. Pt stated he will not need
any after care VN services.
No after care VN services indicated.
PCP: Mark Norwood
Pharmacy: [facility].
D/C plan: home no needs. Spouse to transport.
[2025-05-18 15:35] VITALS: BP 118/61
--- NOTE | 2025-05-18 16:52 | W.DCSUMMARY ---
Discharge Summary
Discharge Data
Date of Admission: 05/14/25
Date of Discharge: 05/18/25
-
Pending Results: No
Hospital Course
Primary diagnosis:
Urinary tract infection with Klebsiella aerogenes post prostate biopsy
Sepsis
Secondary diagnosis:
Chronic obstructive pulmonary disease
Essential hypertension
Chronic diastolic heart failure
Paroxysmal atrial fibrillation
Hospital course:
Patient to post prostate biopsy presented with fever, chills and rigors. He had a positive urinalysis but there are no abdominal pain or perineal pain. The concern was postbiopsy UTI. Did not have any specific symptoms for prostatitis but hard to
exclude. He had associated sepsis with hypotension requiring brief vasopressors. He was not bacteremic. Urine culture was growing Klebsiella aerogenes. He was initially put on IV Zosyn and the sensitivity showed it was intermediate susceptible
to it but he responded well. Once the sensitivities are available he was switched to ciprofloxacin. He was given a dose of IV Cipro and EKG did not show any QTc changes. He was then switched to oral Cipro to complete for another 7 days of
treatment.
From his chronic medical issues there was no evidence of decompensation.
Discharge Plan
-
Patient Disposition: Home (Routine Discharge)
Discharge Diagnosis/Procedures: UTI post prostate biopsy;sepsis
Diet: Low Cholesterol
Activity: As tolerated
Driving Restrictions: As prior to admission
Bathing Restrictions: None
Specialty Instructions: Weigh Daily- Call MD for wt gain/loss 3 lbs overnight/5 lbs in 1 week
Referrals:
Mark Norwood MD [Family Provider, Internal Medicine] - in less than 1 week
Prescriptions:
New
ciprofloxacin HCl 500 mg tablet
500 mg PO BID Qty: 14 0RF
Continued
atorvastatin 40 MG tablet
40 mg PO DAILY
rivaroxaban [Xarelto] 20 MG tablet
20 mg PO DAILY
omeprazole 20 MG capsule,delayed release(DR/EC)
20 mg PO DAILY
furosemide 40 MG tablet
40 mg PO DAILY
lisinopril 10 mg Tablet
10 mg PO DAILY
levalbuterol HCl 1.25 MG/3 ML solution for nebulization
1.25 mg inhalation R Q6
guaifenesin [Mucinex] 600 mg tablet extended release 12hr
600 mg PO BID Qty: 20 0RF
psyllium Packet
1 packet PO DAILY
ascorbate calcium (vitamin C) 500 mg Tablet
1,000 mg PO DAILY
Trelegy Ellipta 100-62.5-25 mcg Blister With Device
1 inh INHALATION R DAILY
verapamil 120 mg Tablet Extended Release
120 mg PO DAILY
Discharge Orders:
Discharge Patient (As Directed); Ordered 05/18/25
Ordered By: Ross Saldana
Discharge Date and Time
Print Language: [place]
--- NOTE | 2025-05-19 13:18 | PN.CDI ---
CDI
- -
CDI:
Physician Documentation Request
Admit Date: 05/14/25 21:50
Dear Doctor Les,
Patient admitted for sepsis post prostate biopsy.
05/14 lactic acid 2.3
Patient was hypotensive and required Levophed.
Please clarify which of the following most accurately describes the status of the patient's infection:
Severe sepsis
- Sepsis with associated acute organ dysfunction, such as renal or respiratory failure
- Documentation should indicate the association between the sepsis and the organ dysfunction
Septic Shock
- Severe sepsis associated with circulatory failure, evidenced by hypotension and hypoperfusion
Sepsis only
Other
Use of terms such as suspected, likely, concern for, or probable (associated with a specific diagnosis that is being evaluated, monitored, or treated as if it exists) are acceptable and can be coded in the inpatient setting, when documented at the
time of discharge.
Thank you,
Kathya Sifuentes RN, BSN
CDI Specialist
tiger text
Please use your independent medical judgment in providing your response.
== END 2025-05-18 18:04 | disposition home or self-care (01) | DRG 862 ==
LOC: 2 NORTH 21:50
PROVIDERS: Nurse Practitioner Family; Physician Assistant; ADMITTING PHYSICIAN Internal Medicine; ATTENDING PHYSICIAN Internal Medicine; EMERGENCY PHYSICIAN Emergency Medicine; FAMILY PHYSICIAN Internal Medicine
DX: T81.43XA Infection following a procedure, organ and space surgical site, initial encounter (principal); A41.59 Other Gram-negative sepsis; R65.21 Severe sepsis with septic shock; I50.32 Chronic diastolic (congestive) heart failure; N41.0 Acute prostatitis; I42.9 Cardiomyopathy, unspecified; J44.0 Chronic obstructive pulmonary disease with (acute) lower respiratory infection; T81.44XA Sepsis following a procedure, initial encounter; I11.0 Hypertensive heart disease with heart failure; I48.0 Paroxysmal atrial fibrillation; E78.00 Pure hypercholesterolemia, unspecified; G47.33 Obstructive sleep apnea (adult) (pediatric); F17.210 Nicotine dependence, cigarettes, uncomplicated; E87.6 Hypokalemia; K21.9 Gastro-esophageal reflux disease without esophagitis; Z88.1 Allergy status to other antibiotic agents; Z88.8 Allergy status to other drugs, medicaments and biological substances; Z79.01 Long term (current) use of anticoagulants; Z79.899 Other long term (current) drug therapy; Z99.81 Dependence on supplemental oxygen; Y83.8 Other surgical procedures as the cause of abnormal reaction of the patient, or of later complication, without mention of misadventure at the time of the procedure
CPT/HCPCS: 71045; 80048; 80053; 81003; 81015; 83605; 83880; 84484; 85025; 85027; 87040; 87070; 87077; 87086; 87186; 87811; 93005; 94640; 94660; 96361; 96365; 96366; 96367; 96375; 99291

== ENCOUNTER 2025-09-17 05:28 | Inpatient (IN) | payer OTHER, SELFPAY ==
[2025-09-17] VITALS (14 sets, daily range): BP systolic 121–162; BP diastolic 63–116; BMI 34.4; BMI 35.0
--- NOTE | 2025-09-17 02:07 | ED.GENMED ---
History of Present Illness
General
Chief Complaint: Breathing Problem
Source: patient and spouse
Exam Limitations: clinical condition
Time Seen by Provider: 09/17/25 02:01
Nursing documentation reviewed up to this point in time: agreed with
History of Present Illness
History of Present Illness:
65-year-old male cough shortness of breath acute on chronic issue smoker COPD, no fevers, using his neb at home without much relief no chest pains
3 AM patient now able to give more history has been sick with a URI for about a month he smokes 2 packs of cigarettes a day not on chronic steroids, has been using his nebulizer
Past History
Past History
ED Past Medical History: Arrthythmia (Paroxysmal atrial fibrillation), Asthma, COPD, GERD, HTN, Hypercholesterolemia and Other (Villous adenoma colon polyp)
ED Past Surgical History: Bowel resection (Transverse colon resection 12/18/2011, for removal of villous adenomatous polyp), Cardiac (Radiofrequency ablation of A. fib) and Cholecystectomy
Social History
Tobacco: Smoker
Alcohol: None
Drug: None
Personal:
Living: with family
Employment: Employed
Family History
Family History: Hypertension
Review of Systems
Review of Systems
All Other Systems: Not applicable
Constitutional: Denies fever
Respiratory: Reports cough and trouble breathing
Cardiac: Denies chest pain or diaphoresis
ABD/GI: Reports no symptoms
: Reports no symptoms
Musculoskeletal: Reports no symptoms
Neurological: Reports no symptoms
Endocrine: Reports no symptoms
Phy Exam
Physical Exam
Physical Exam:
Physical Exam
General: Ill-appearing male grunting
Neck: No jaundice
Heart: s1/s2 regular rate and rhythm, no murmur. equal radial pulses.
Lungs: Shallow respirations faint wheeze poor air movement
Abdomen: Nontender
Neuro: alert and oriented. no focal neurological deficits
Skin: no rash
Psychiatric: well kept. interactive and cooperative
Extremities: no edema.
Scores
Heart Failure Risk
Heart Failure Risk Score: Not Applicable
Course
Orders/Labs/Results
Orders:
Orders
09/17/25 02:01
Electrocardiogram (*1) Stat
Reason for Study: Other
Other Reason for Exam: pneumonia
Cardiac Monitoring- Treatment ONCE
EKG- Treatment ONCE
IV Insert/Care/Rem.- Treatment PRN
Albuterol Sulfate [Ventolin Nebules] 7.5 mg INH R NOW STA
Dexamethasone Sod Phosphate [Decadron] 10 mg IV NOW STA
Ipratropium/Albuterol Sulfate [Duoneb] 9 ml .ROUTE .STK-MED ONE
O2 Therapy [RESP] Stat
Titrate/Wean O2 to maintain O2 sat greater than (%): 95
09/17/25 02:02
CR Chest Portable - 1 View Urgent
Comment:
Reason For Exam: sob
Reason Study Needs to be Portable: Unable to Transport
09/17/25 02:17
Complete Blood Count/With Diff Urgent
Comprehensive Metabolic Panel Urgent
NT-proBNP Urgent
Troponin I Urgent
09/17/25 02:18
COVID-19 Antigen Urgent
Source: Nasal Swab
Influenza A+B Rapid Molecular Urgent
ROSAMARIA Source: Nasal Swab
Specimen Description:
09/17/25 02:22
Lactic Acid Urgent
09/17/25 02:31
Arterial Blood Gas Urgent
%Oxygen/Room Air: 2
09/17/25 02:59
Enalaprilat [Vasotec] 0.625 mg IV NOW STA
Abnormal Lab Results
09/17/25 09/17/25
02:17 02:31
RBC 3.95 L 10^6/uL
(4.70-6.10)
Hgb 11.3 L g/dL
(13.0-18.0)
Hct 34.2 L %
(39.0-52.0)
RDW 15.7 H %
(11.5-14.5)
Absolute Monos (auto) 0.7 H 10^3/uL
(0.1-0.6)
Lymphocytes % 18.5 L %
(20.5-51.1)
Monocytes % 10.8 H %
(1.7-9.3)
pCO2 55 H mmHg
(35-48)
pO2 82 L mmHg
(83-108)
HCO3 34.1 H mmol/L
(21-28)
Carbon Dioxide 33 H mmol/L
(22-30)
Glucose 111 H mg/dl
(70-99)
09/17/25 02:17
09/17/25 02:17
Vital Signs
Initial and Last Documented VS:
Initial Vital Signs
Temp Pulse Resp Pulse Ox
99.2 F 102 28 83
09/17/25 02:01 09/17/25 02:01 09/17/25 02:01 09/17/25 02:01
Last Documented Vital Signs
Temp Pulse Resp BP Pulse Ox
99.2 F 85 21 127/66 95
09/17/25 02:01 09/17/25 03:12 09/17/25 03:12 09/17/25 03:12 09/17/25 03:12
MDM/Problems Addressed
Differential Diagnosis Includes:
COPD pneumonia influenza COVID heart failure pneumothorax less likely PE
MDM/Problems Addressed:
Shortness of breath
Chronic conditions affecting care: COPD
Acute Exacerbation and/or Progression of Chronic Illness: COPD
*Radiology
Radiology exam reviewed: preliminary read by ED provider
*Pulse Oximetry
SaO2: 82
Oxygen Mode of Delivery: Room air
Patient hypoxic: yes
*EKG
Interpreted by ED Provider?: Yes
Interpretation: normal
Comparison EKG: no comparison EKG present
Heart Rate: 78
Rate: normal
Rhythm: sinus
Ischemia: non-specific ST changes
*Transcripter Interpretation
Rate: normal
Interpretation: normal
Heart Rate: 78
Rhythm: sinus
*Critical Care Note
Total Time (30-74mins, 75-104mins- exclusive of procedures): 32
Data Reviewed
Review of Other/Old Records Reveals: Labs and Records
Source: patient, records and spouse
Prescriptions/Medications Considered But Not Given:
Magnesium macrolide
Further Testing Considered But Not Given:
CT of the chest
Update Note
Update Note:
Update 3 AM labs noted ABG pending chest x-ray noted patient clinically improving
ED Attending Note
-
Portions of this chart may have been created with voice recognition software.� Occasional wrong word or��sound alike� substitutions may have occurred due to the inherent limitations of voice recognition software.
Discharge Plan
Departure
Patient Disposition: Admit
Date of Disposition: 09/17/25
Time of Disposition: 02:58
Admit to: Telemetry
Presentation/result/management discussed w/ accepting MD/DO: Hospitalist
Patient with high blood pressure during this ER visit?: Yes
Condition: Fair
Discharge Problem:
COPD (chronic obstructive pulmonary disease), Hypoxia
Prescriptions:
No Action
atorvastatin 40 MG tablet
40 mg PO DAILY
rivaroxaban [Xarelto] 20 MG tablet
20 mg PO DAILY
omeprazole 20 MG capsule,delayed release(DR/EC)
20 mg PO DAILY
furosemide 40 MG tablet
40 mg PO DAILY
lisinopril 10 mg Tablet
10 mg PO DAILY
levalbuterol HCl 1.25 MG/3 ML solution for nebulization
1.25 mg inhalation R Q6
guaifenesin [Mucinex] 600 mg tablet extended release 12hr
600 mg PO BID Qty: 20 0RF
psyllium Packet
1 packet PO DAILY
ascorbate calcium (vitamin C) 500 mg Tablet
1,000 mg PO DAILY
Trelegy Ellipta 100-62.5-25 mcg Blister With Device
1 inh INHALATION R DAILY
verapamil 120 mg Tablet Extended Release
120 mg PO DAILY
ciprofloxacin HCl 500 mg tablet
500 mg PO BID Qty: 14 0RF
Referrals:
Mark Norwood MD [Family Provider, Internal Medicine]
Interventions
Interventions:
*General Assessment Last Done: 09/17/25 02:26
*Neglect/Abuse Screening Last Done: 09/17/25 02:27
*ED COVID-19 Vaccine History Last Done: 09/17/25 02:26
*ED Influenza Vaccine History Last Done: 09/17/25 02:26
[facility] Fall Risk Assessment Tool Last Done: 09/17/25 02:13
*Risk Screen - Suicide (C-SSRS) Last Done: 09/17/25 02:01
ED- Cardiac Assessment Last Done: 09/17/25 02:27
ED- Pulmonary Assessment Last Done: 09/17/25 02:27
Discharge Date and Time
Print Language: YI
[2025-09-17] MEDS: VENTOLIN NEBULES 7.5 MG INH (02:09)
[2025-09-17] MEDS: DECADRON 10 MG IV (02:14)
[2025-09-17 02:25] LABS: Hematocrit 34.2 % (39.0-52.0); Hemoglobin 11.3 g/dL (13.0-18.0); Mean Corp Hgb Conc. 33.0 g/dL (33.0-37.0); Mean Corpuscular Volume 86.6 fL (80.0-94.0); Nucleated Red Blood Cells % 0 % (-); Platelet Count 189 10^3/uL (130-400); Red Cell Dist. Width 15.7 % (11.5-14.5)
[2025-09-17 02:45] LABS: ALT (SGPT) 16 U/L (0-50); AST (SGOT) 24 U/L (17-59); Albumin 4.1 g/dl (3.5-5.0); Alkaline Phosphatase 88 U/L (38-126); Blood Urea Nitrogen 17 mg/dl (9-20); Calcium 8.5 mg/dl (8.4-10.2); Carbon Dioxide 33 mmol/L (22-30); Chloride 102 mmol/L (98-107); Estimated Creatinine Clearance > 125 ml/min; Glucose 111 mg/dl (70-99); Potassium 3.9 mmol/L (3.5-5.1); Sodium 141 mmol/L (135-145); Total Protein 7.1 g/dl (6.3-8.2); eGFR > 60.00
[2025-09-17 02:50] LABS: B.E. 7.8 mmol/L; HCO3 34.1 mmol/L (21-28); O2 Saturation % 97.6 % (94-98); PCO2 55 mmHg (35-48); PO2 82 mmHg (83-108)
[2025-09-17 02:51] LABS: COVID-19 Antigen Negative (Negative)
[2025-09-17 02:59] LABS: Troponin I < 0.012 ng/ml
--- NOTE | 2025-09-17 04:47 | HPS.HSE ---
Family Physician
-
Family Physician: Mark Norwood
Chief Complaint
-
SOB
History of Present Illness
Patient is a 65y M with PMH significant for COPD, PA-Fib and CHF who presents to ED complaining of SOB. Patient states that he has had 'cold symptoms' with nasal congestion and chronic cough. He reports gradually worsening dyspnea over the past
few weeks. He states that he is more SOB with lying flat and he sleeps sitting up in a recliner (chronically). He is on 2 lpm of NC O2 at home at all times.
He continues to smoke 2 ppd.
Patient denies any fevers / chills. No GI or symptoms.
Medical History
Past Medical History
Past Medical History: Reports Other
Additional Past Medical History:
paroxysmal atrial fibrillation
chronic HFpEF
essential hypertension
hyperlipidemia
COPD
obstructive sleep apnea
colon cancer
Past Surgical History: Reports Other
Additional Past Surgical History:
Cervical Laminectomy
Lumbosacral Laminectomy / Fusion
Colon Resection
Cholecystectomy
Social History
Tobacco: Smoker (2 packs per day, approximate 100 pack year history )
Alcohol: Daily (few highballs per day, no alcohol today )
Drug: None
Personal:
Living: With Family
Employment: Retired
Family History
Family History: Other (Mother: Lung Cancer; Father: CAD, DM, HTN, Alcohol-Use Disorder, Throat Cancer)
Allergies / Home Medications
Allergies reflects when Allergies were last updated in [facility].
Home Medications with original date entered in [facility]
Allergy/Medication List:
Allergies
Allergy/AdvReac Type Severity Reaction Status Date / Time
Beta-Blockers Allergy Anaphylaxis Verified 09/17/25 02:01
(Beta-Adrenergic Bloc
clarithromycin Allergy Rash Verified 09/17/25 02:01
(Clarithromycin)
fluticasone propionate (From Allergy mouth Verified 09/17/25 02:01
Advair Diskus) became
sensitive,
burning
salmeterol xinafoate (From Allergy mouth Verified 09/17/25 02:01
Advair Diskus) became
sensitive,
burning
Home Medications
atorvastatin 40 mg tablet 40 mg PO DAILY High Cholesterol 10/25/12
rivaroxaban 20 mg tablet (Xarelto) 20 mg PO DAILY atrial fibrillation 03/30/18
omeprazole 20 mg capsule,delayed release 20 mg PO DAILY Gastrointestinal Issue 10/17/18
furosemide 40 mg tablet 40 mg PO DAILY Fluid Retention/Swelling 05/30/19
levalbuterol HCl 1.25 mg/3 mL solution for nebulization 1.25 mg inhalation R Q6 COPD 09/10/23
lisinopril 10 mg tablet 10 mg PO DAILY Blood Pressure 09/10/23
guaifenesin 600 mg tablet, extended release 12 hr (Mucinex) 600 mg PO BID #20 tabs 09/12/23
ascorbate calcium (vitamin C) 500 mg tablet 1,000 mg PO DAILY Supplement 05/14/25
fluticasone fur. 100 mcg-umeclid 62.5 mcg-vilant 25 mcg inhalat.powder (Trelegy Ellipta) 1 inh inhalation R DAILY Lung/Breathing Issues 05/14/25
psyllium 1 packet PO DAILY Constipation 05/14/25
verapamil 120 mg tablet,extended release 120 mg PO DAILY 05/16/25
Review of Systems
-
History Source: Patient
A 12 point ROS was completed and negative except as noted: Yes
Constitutional: Reports Fatigue; Denies Fever or Chills
EENT: Reports Runny Nose; Denies Sore Throat
Respiratory: Reports Cough and Trouble Breathing; Denies Hemoptysis
Cardiac: Denies Chest Pain or Palpitations
Abdomen/GI: Denies Abdominal Pain, Nausea, Vomiting or Diarrhea
: Denies Dysuria, Frequency or Flank Pain
Musculoskeletal: Denies Joint Pain or Edema
Neurological: Denies Dizzy or Headache
Psych: Denies Depression or Anxiety
Physical Exam
Vital Signs
Vital Signs
Temp Pulse Resp BP Pulse Ox
99.2 F 85 21 127/66 95
09/17/25 02:01 09/17/25 03:12 09/17/25 03:12 09/17/25 03:12 09/17/25 03:12
Physical Exam
General: Other (65y M in mild distress due to dyspnea.)
HEENT: Moist mucous membranes and PERRLA
Respiratory: Other (Diffuse inspiratory and expiratory wheezing. No rales / rhonchi.)
Cardiac: S1/S2 and Regular Rhythm; No Murmur
GI: Soft, Non Tender, Non Distended and Normal Bowel Sounds
Musculoskeletal: No Clubbing, No Cyanosis and No Edema
Neuro: AO x 3
Laboratory Results
-
09/17/25 02:17
09/17/25 02:17
Laboratory Results
pH 7.40 (7.35-7.45) 09/17/25 02:31
pCO2 55 mmHg (35-48) H 09/17/25 02:31
pO2 82 mmHg (83-108) L 09/17/25 02:31
HCO3 34.1 mmol/L (21-28) H 09/17/25 02:31
Lactic Acid 1.1 mmol/L (0.7-2.0) 09/17/25 02:22
Total Bilirubin 0.6 mg/dl (0.2-1.3) 09/17/25 02:17
AST 24 U/L (17-59) 09/17/25 02:17
ALT 16 U/L (0-50) 09/17/25 02:17
Alkaline Phosphatase 88 U/L (38-126) 09/17/25 02:17
Troponin I < 0.012 ng/ml 09/17/25 02:17
Impression/Plan
-
A/P: Patient is a 65y M with PMH significant for COPD, CHF and A-Fib who presents to ED complaining of SOB.
AE-COPD
Chronic Hypoxemic Respiratory Failure
- Admit for further evaluation and treatment.
- COVID / Flu negative in the ED. CXR without acute infiltrate, etc.
- Continue IV steroids, nebs, etc.
- Follow for clinical improvement.
- Encourage smoking cessation - though patient does not appear motivated to quit.
- Consider Pulmonary evaluation if symptoms worsen or persist.
Paroxysmal Atrial Fibrillation
- Stable. Continue current med regimen including Xarelto.
Chronic HFpEF
- Stable. Does not appear grossly volume overloaded.
- Continue Lasix dose.
- Follow I/Os, daily weights, etc.
Benign Hypertension
- Stable. Continue verapamil and lisinopril with holding parameters.
DVT Prophylaxis: On Xarelto
Code Status: Full
[2025-09-17 06:22] LABS: Hematocrit 34.5 % (39.0-52.0); Hemoglobin 11.2 g/dL (13.0-18.0); Mean Corp Hgb Conc. 32.5 g/dL (33.0-37.0); Mean Corpuscular Volume 88.0 fL (80.0-94.0); Platelet Count 207 10^3/uL (130-400); Red Cell Dist. Width 15.9 % (11.5-14.5)
[2025-09-17 06:46] LABS: Blood Urea Nitrogen 16 mg/dl (9-20); Calcium 8.5 mg/dl (8.4-10.2); Carbon Dioxide 32 mmol/L (22-30); Chloride 101 mmol/L (98-107); Estimated Creatinine Clearance > 125 ml/min; Glucose 135 mg/dl (70-99); Potassium 3.9 mmol/L (3.5-5.1); Sodium 139 mmol/L (135-145); eGFR > 60.00
[2025-09-17] MEDS: LIPITOR 40 MG PO (08:03)
[2025-09-17] MEDS: LASIX 40 MG PO (08:04)
[2025-09-17] MEDS: FOLVITE 1 MG PO (08:04)
[2025-09-17] MEDS: MUCINEX 1200 MG PO ×2 (08:04→19:52)
[2025-09-17] MEDS: PROTONIX 40 MG PO (08:04)
[2025-09-17] MEDS: ZESTRIL 10 MG PO (08:04)
[2025-09-17] MEDS: DUONEB 3 ML INH ×4 (08:05→19:57)
[2025-09-17] MEDS: THIAMINE INJECTION 200 MG IV ×2 (08:05→19:52)
[2025-09-17] MEDS: CALAN EXTENDED RELEASE 120 MG PO (08:05)
[2025-09-17] MEDS: DECADRON 4 MG IV ×2 (09:14→17:09)
[2025-09-17] MEDS: XARELTO 20 MG PO (09:38)
--- NOTE | 2025-09-17 12:48 | CM ---
manager labor relations reviewed patient's chart and met with patient and patient reports he lives with his spouse in a modular home with 2 steps to enter, patient is independent with adl's and ambulation, patient is on home oxygen at 2 from [facility]. Case
manager club received a consult for for substance use counseling and patient declined any supports or information on substance use.
PCP: Dr. Norwood
Pharmacy; [facility] on [facility]
--- NOTE | 2025-09-17 13:09 | W.PN.HOSP.TC ---
Today's Communication/Plan
-
see A/P
Assessment / Plan
Assessment / Plan
HPI: 65 yo M with PMH significant for COPD, PA Fib, CHF; who presented with SOB. Patient states that he has had 'cold symptoms' with nasal congestion and chronic cough. He reported gradually worsening dyspnea over the past few weeks. He states that
he is more SOB with lying flat and he sleeps sitting up in a recliner (chronically). He is on 2 lpm of NC O2 at home at all times.
He continues to smoke 2 ppd.
Patient denies any fevers / chills. No GI or symptoms.
A/P:
# AE COPD
# Chronic Hypoxemic Respiratory Failure
COVID / Flu negative in the ED. CXR without acute infiltrate, etc.
proBNP was checked, at 81
Continue IV steroids, currently on Decadron 4 mg IV Q8H
Cont Duonebs, Mucinex
Follow for clinical improvement.
Encourage smoking cessation - though patient does not appear motivated to quit.
[facility] Pulmonary evaluation outpt- pt informed
# Paroxysmal Atrial Fibrillation, Stable.
Continue current med regimen including Xarelto.
# Chronic HFpEF, Stable.
Does not appear grossly volume overloaded.
Continue Lasix dose.
Follow I/Os, daily weights, etc.
# Benign Hypertension, Stable.
Continue verapamil and lisinopril with holding parameters.
DVT Prophylaxis: On Xarelto
Code Status: Full
DW RN
Anticipated Discharge: Within 24 hours
Subjective/Interval History
-
Date of Service: September 17, 2025
Objective Data
-
Labs:
Laboratory Results
09/17/25 09/17/25 09/17/25
02:17 02:31 06:14
WBC 6.6 7.8
Hgb 11.3 L 11.2 L
Hct 34.2 L 34.5 L
Plt Count 189 207
HCO3 34.1 H
Sodium 141 139
Potassium 3.9 3.9
Chloride 102 101
Carbon Dioxide 33 H 32 H
BUN 17 16
Creatinine 0.7 0.6 L
Glucose 111 H 135 H
Calcium 8.5 8.5
Total Bilirubin 0.6
AST 24
ALT 16
Alkaline Phosphatase 88
Vital Signs:
Vital Signs
Temp Pulse Resp BP Pulse Ox
36.5 C 80 18 128/63 98
09/17/25 11:55 09/17/25 11:55 09/17/25 11:55 09/17/25 11:55 09/17/25 12:25
I&O
09/16/25 09/17/25 09/18/25
06:59 06:59 06:59
Output Total 350 / 350
Balance -350 / -350
Review of Systems
-
History Source: Patient
All other systems: Reviewed and negative
Respiratory: Denies Trouble Breathing
Physical Exam
-
General: Well Developed, Well Nourished, Comfortable, Respiratory Distress (Chronic), Intubated and Conversant
HEENT: Normocephalic, Atraumatic and Oxygen (2L NC)
Respiratory: Wheezes (R > L) and Non Labored Respirations; Negative Accessory Resp Muscle Use
Cardiac: Regular Rhythm and S1/S2; Negative Tachycardic
Neuro: Awake and Alert
Psych: Calm and Intact Judgement/Insight
Data Reviewed
-
Diagnostic Radiology: Report Reviewed by me
Labs: Labs Reviewed by me
--- NOTE | 2025-09-17 14:14 | VNURNOTE ---
Chart reviewed. [facility] liaison met with patient at bedside. Explained [facility] nurse/therapy, visits, schedule and homebound status. Patient stated he normally goes out 2x/week to see a friend and goes to the bar. He stated he intends to keep his
plans to go to [place] next week. He stays in [place] from Aug to December. He stated he feels 'fine' and has home 02 that he will take to [place] with him. Would not meet homebound criteria but provided contact number for [facility] if he changes his mind.
Updated CM Sharri. NO referral placed.
--- NOTE | 2025-09-17 14:48 | PTCARENOTE ---
Pt received to floor from ED via stretcher. Ambulated to bed. SaO2 98% on 2L NC. Wheezes auscultated. MSAS 4 for tremors, restlessness. Pt states drinks every day, often more than 5 drinks in a day. Pt states last drink was 09/16 @ 17:00. Health
history and assessment obtained.
[2025-09-17] MEDS: OCEAN, SALINE MIST 50 SPRAYS NASAL (23:19)
[2025-09-18] MEDS: MELATONIN 5 MG PO (00:44)
[2025-09-18] MEDS: DECADRON 4 MG IV ×3 (01:15→17:20)
[2025-09-18] MEDS: VENTOLIN NEBULES 2.5 MG INH (04:28)
[2025-09-18 04:53] VITALS: BMI 34.5
--- NOTE | 2025-09-18 05:25 | PTCARENOTE ---
Pt arrived to unit via wheelchair and ambulated to recliner. 2L o2 NC applied. VS stable. Initial assessment completed. Call lynch within reach.
[2025-09-18 05:36] VITALS: BP 145/77
[2025-09-18 07:10] VITALS: BP 147/71
[2025-09-18] MEDS: DUONEB 3 ML INH ×3 (07:59→19:25)
[2025-09-18] MEDS: XARELTO 20 MG PO (09:14)
[2025-09-18] MEDS: LASIX 40 MG PO (09:14)
[2025-09-18] MEDS: LIPITOR 40 MG PO (09:14)
[2025-09-18] MEDS: FOLVITE 1 MG PO (09:15)
[2025-09-18] MEDS: PROTONIX 40 MG PO (09:15)
[2025-09-18] MEDS: ZESTRIL 10 MG PO (09:15)
[2025-09-18] MEDS: MUCINEX 1200 MG PO ×2 (09:15→21:09)
[2025-09-18] MEDS: THIAMINE INJECTION 200 MG IV (09:16)
[2025-09-18] MEDS: CALAN EXTENDED RELEASE 120 MG PO (10:37)
--- NOTE | 2025-09-18 11:44 | PTCARENOTE ---
Pt c/o FREEMAN, auscultated for insp and exp wheeze, 93% on RA following walking to bathroom, placed back on 2L NC, pt's baseline oxygen use. Scheduled IV Decadron given at this time. Previous RN reported to Dr Beaulieu. Shiv ordered and being
administered now. Pt able to talk on the phone, mild distress noted.
--- NOTE | 2025-09-18 11:48 | W.PN.HOSP.TC ---
Addendum entered and electronically signed by Deidre Beaulieu MD 09/18/25 14:03:
procal negative which essentially r/o bacterial pneumonia
Addendum entered and electronically signed by Deidre Beaulieu MD 09/18/25 12:05:
also check procal for CAP assessment contributing to hypoxia and resp distress
Original Note:
Today's Communication/Plan
-
see A/P
Assessment / Plan
Assessment / Plan
HPI: 65 yo M with PMH significant for COPD, PA Fib, CHF; who presented with SOB. Patient states that he has had 'cold symptoms' with nasal congestion and chronic cough. He reported gradually worsening dyspnea over the past few weeks. He states that
he is more SOB with lying flat and he sleeps sitting up in a recliner (chronically). He is on 2 lpm of NC O2 at home at all times.
He continues to smoke 2 ppd.
Patient denies any fevers / chills. No GI or symptoms.
A/P:
# AE COPD
# Chronic Hypoxemic Respiratory Failure
Placed on 2L NC, wean as tolerated, pt not on home O2
COVID / Flu negative in the ED. CXR without acute infiltrate, etc.
proBNP at 81
Continue IV steroids, currently on Decadron 4 mg IV Q8H
Cont Duonebs ATC and PRN,
Cont Mucinex
Add azithromycin 500 mg for COPD
Start vest therapy
Follow for clinical improvement.
Encourage smoking cessation - though patient does not appear motivated to quit.
[facility] Pulmonary evaluation outpt- pt informed
# Possible anxiety vs steroid effect
low dose Xanax x1 dose, informed pt and RN of cautious use
# Paroxysmal Atrial Fibrillation, Stable.
Continue current med regimen including Xarelto.
# Chronic HFpEF, Stable.
Does not appear grossly volume overloaded.
Continue Lasix dose.
Follow I/Os, daily weights, etc.
# Benign Hypertension, Stable.
Continue verapamil and lisinopril with holding parameters.
DVT Prophylaxis: On Xarelto
Code Status: Full
DW RN
total time 51 min
Anticipated Discharge: 24 - 48 hours
Subjective/Interval History
-
Date of Service: September 18, 2025
Objective Data
-
Vital Signs:
Vital Signs
Temp Pulse Resp BP Pulse Ox
36.4 C 81 16 147/71 96
09/18/25 07:10 09/18/25 08:01 09/18/25 08:01 09/18/25 07:10 09/18/25 08:01
I&O
09/17/25 09/18/25 09/19/25
06:59 06:59 06:59
Output Total 350 / 350
Balance -350 / -350
Review of Systems
-
History Source: Patient
Respiratory: Reports Trouble Breathing
Physical Exam
-
General: Well Developed, Well Nourished, Comfortable, Respiratory Distress (Chronic) and Conversant
HEENT: Normocephalic, Atraumatic and Oxygen (2L NC)
Respiratory: Wheezes (chronic per pt ) and Non Labored Respirations; Negative Accessory Resp Muscle Use
Cardiac: Regular Rhythm and S1/S2
Neuro: Awake and Alert
Psych: Calm and Intact Judgement/Insight
Data Reviewed
-
Diagnostic Radiology: Report Reviewed by me
Labs: Labs Reviewed by me
[2025-09-18] MEDS: ZITHROMAX 500 MG PO (12:14)
[2025-09-18] MEDS: ALPRAZOLAM ODT 0.25 MG PO (12:14)
[2025-09-18 13:32] LABS: Procalcitonin < 0.05 ng/ml (0.0-0.25)
[2025-09-18 15:05] VITALS: BP 112/53
[2025-09-18] MEDS: DUONEB INH (15:54)
--- NOTE | 2025-09-18 16:27 | CM ---
Discharge POC: Home with no needs. Declined HH services.
[2025-09-18 21:00] VITALS: BMI 34.5
[2025-09-18] MEDS: XANAX 0.25 MG PO (21:36)
[2025-09-18 23:28] VITALS: BP 139/66
[2025-09-19] MEDS: DECADRON 4 MG IV ×3 (02:32→17:51)
[2025-09-19] MEDS: DUONEB 3 ML INH ×5 (05:43→17:35)
[2025-09-19 06:00] VITALS: BMI 34.6
[2025-09-19 07:00] VITALS: BP 154/77
--- NOTE | 2025-09-19 07:40 | W.PN.HOSP.TC ---
Today's Communication/Plan
-
Doing better
Home O2 test in the morning to assess O2 needs
Assessment / Plan
Assessment / Plan
Physical Exam
General: Well Developed, Well Nourished, Comfortable, Respiratory Distress (Chronic) and Conversant
HEENT: Normocephalic, Atraumatic and Oxygen (2L NC)
Respiratory: Wheezes (chronic per pt ) and Non Labored Respirations; Negative Accessory Resp Muscle Use
Cardiac: Regular Rhythm and S1/S2
Neuro: Awake and Alert
Psych: Calm and Intact Judgement/Insight
Assessment/Plan
HPI: 65 yo M with PMH significant for COPD, PA Fib, CHF; who presented with SOB. Patient states that he has had 'cold symptoms' with nasal congestion and chronic cough. He reported gradually worsening dyspnea over the past few weeks. He states that
he is more SOB with lying flat and he sleeps sitting up in a recliner (chronically). He is on 2 lpm of NC O2 at home at all times.
He continues to smoke 2 ppd.
Patient denies any fevers / chills. No GI or symptoms.
# COPD Exacerbation
# Chronic Hypoxemic Respiratory Failure
Placed on 2L NC, wean as tolerated, on nocturnal home O2
COVID / Flu negative in the ED. CXR without acute infiltrate, etc.
proBNP at 81
Continue IV steroids, currently on Decadron 4 mg IV Q8H
Cont Duonebs ATC and PRN
Cont Mucinex
Continue Azithromycin 500 mg daily for COPD
Procal is very low --> low suspicion of bacterial pneumonia
Continue vest therapy
Follow for clinical improvement.
Encourage smoking cessation - though patient does not appear motivated to quit.
Recommend Pulmonary evaluation outpatient - pt informed
# Possible anxiety vs steroid effect
low dose Xanax x1 dose, informed pt and RN of cautious use
# Paroxysmal Atrial Fibrillation, Stable.
Continue current med regimen including Xarelto.
# Chronic HFpEF, Stable.
Does not appear grossly volume overloaded.
Continue Lasix dose.
Follow I/Os, daily weights, etc.
# Benign Hypertension, Stable.
Continue verapamil and lisinopril with holding parameters.
DVT Prophylaxis: On Xarelto
Code Status: Full
Anticipated Discharge: 24 - 48 hours
Subjective/Interval History
-
Date of Service: September 19, 2025
Patient was seen and examined. He reported that his shortness of breath is better today, and he denied any new symptoms or complaints.
Objective Data
-
Labs:
Laboratory Results
09/19/25
07:36
WBC Pending
Hgb Pending
Hct Pending
Plt Count Pending
Sodium Pending
Potassium Pending
Chloride Pending
Carbon Dioxide Pending
BUN Pending
Creatinine Pending
Glucose Pending
Calcium Pending
Vital Signs:
Vital Signs
Temp Pulse Resp BP Pulse Ox
97.4 F 79 18 154/77 95
09/19/25 07:00 09/19/25 07:24 09/19/25 07:24 09/19/25 07:00 09/19/25 07:24
I&O
09/18/25 09/19/25 09/20/25
06:59 06:59 06:59
Intake Total 1480 / 1480
Output Total 350 / 350
Balance -350 / -350 1480 / 1480
[2025-09-19 08:18] LABS: Hematocrit 34.1 % (39.0-52.0); Hemoglobin 11.3 g/dL (13.0-18.0); Mean Corp Hgb Conc. 33.1 g/dL (33.0-37.0); Mean Corpuscular Volume 87.7 fL (80.0-94.0); Platelet Count 237 10^3/uL (130-400); Red Cell Dist. Width 15.9 % (11.5-14.5)
[2025-09-19] MEDS: ZITHROMAX 500 MG PO (08:41)
[2025-09-19] MEDS: XARELTO 20 MG PO (08:42)
[2025-09-19] MEDS: ZESTRIL 10 MG PO (08:42)
[2025-09-19] MEDS: LASIX 40 MG PO (08:42)
[2025-09-19] MEDS: CALAN EXTENDED RELEASE 120 MG PO (08:42)
[2025-09-19] MEDS: PROTONIX 40 MG PO (08:42)
[2025-09-19] MEDS: FOLVITE 1 MG PO (08:42)
[2025-09-19] MEDS: MUCINEX 1200 MG PO ×2 (08:43→19:39)
[2025-09-19] MEDS: LIPITOR 40 MG PO (08:43)
[2025-09-19 10:19] LABS: Blood Urea Nitrogen 21 mg/dl (9-20); Calcium 9.2 mg/dl (8.4-10.2); Carbon Dioxide 31 mmol/L (22-30); Chloride 100 mmol/L (98-107); Estimated Creatinine Clearance > 125 ml/min; Glucose 137 mg/dl (70-99); Potassium 4.1 mmol/L (3.5-5.1); Sodium 136 mmol/L (135-145); eGFR > 60.00
[2025-09-19 15:00] VITALS: BP 112/51
[2025-09-19] MEDS: XANAX 0.25 MG PO (21:29)
[2025-09-19 23:12] VITALS: BP 147/69
[2025-09-20] MEDS: DECADRON 4 MG IV ×3 (01:47→18:27)
[2025-09-20] MEDS: DUONEB 3 ML INH ×5 (05:05→19:24)
[2025-09-20 07:00] VITALS: BP 167/80
--- NOTE | 2025-09-20 07:19 | PTCARENOTE ---
MSAS discontinued per protocol as 0-4 since 09/17/2025.
--- NOTE | 2025-09-20 07:26 | W.PN.HOSP.TC ---
Today's Communication/Plan
-
See plan
Pulmonary will see patient tomorrow
Assessment / Plan
Assessment / Plan
Physical Exam
General: Well Developed, Well Nourished, Comfortable, Respiratory Distress (Chronic) and Conversant
HEENT: Normocephalic, Atraumatic and Oxygen (2L NC)
Respiratory: Wheezes (chronic per pt ) and Non Labored Respirations; Negative Accessory Resp Muscle Use
Cardiac: Regular Rhythm and S1/S2
Neuro: Awake and Alert
Psych: Calm and Intact Judgement/Insight
Assessment/Plan
HPI: 65 yo M with PMH significant for COPD, PA Fib, CHF; who presented with SOB. Patient states that he has had 'cold symptoms' with nasal congestion and chronic cough. He reported gradually worsening dyspnea over the past few weeks. He states that
he is more SOB with lying flat and he sleeps sitting up in a recliner (chronically). He is on 2 lpm of NC O2 at home at all times.
He continues to smoke 2 ppd.
Patient denies any fevers / chills. No GI or symptoms.
# COPD Exacerbation
# Chronic Hypoxemic Respiratory Failure
Placed on 2L NC, wean as tolerated, on nocturnal home O2
COVID / Flu negative in the ED. CXR without acute infiltrate, etc.
proBNP at 81
Continue IV steroids, currently on Decadron 4 mg IV Q8H
Cont Duonebs ATC and PRN
Cont Mucinex
Continue Azithromycin 500 mg daily for COPD -- will hold 09/21/25 AM dose of Azithromycin so that EKG QTc can be re-checked (morning EKG ordered) -- if QTc okay, can continue Azithromycin for up to 5 days or as per pulmonary
Procal is very low --> low suspicion of bacterial pneumonia
Continue vest therapy
Follow for clinical improvement.
Encourage smoking cessation - though patient does not appear motivated to quit.
Pulmonary consulted as patient still needing O2 during the day and still wheezing -- patient sees Dr. Kruger outpatient
# Possible anxiety vs steroid effect
low dose Xanax x1 dose, informed pt and RN of cautious use
# Paroxysmal Atrial Fibrillation, Stable.
Continue current med regimen including Xarelto.
# Chronic HFpEF, Stable.
Does not appear grossly volume overloaded.
Continue Lasix dose.
Follow I/Os, daily weights, etc.
# Benign Hypertension, Stable.
Continue verapamil and lisinopril with holding parameters.
DVT Prophylaxis: On Xarelto
Code Status: Full
Anticipated Discharge: 24 - 48 hours
Subjective/Interval History
-
Date of Service: September 20, 2025
Patient was seen and examined. He reported he is feeling better, although still with some wheezing.
Objective Data
-
Vital Signs:
Vital Signs
Temp Pulse Resp BP Pulse Ox
97.3 F 78 16 147/69 92
09/19/25 23:12 09/20/25 05:07 09/20/25 05:07 09/19/25 23:12 09/20/25 05:07
I&O
09/19/25 09/20/25 09/21/25
06:59 06:59 06:59
Intake Total 1480 / 1480 1200 / 1200
Balance 1480 / 1480 1200 / 1200
[2025-09-20 07:52] VITALS: O2SAT 86; O2SAT 91
[2025-09-20 08:24] LABS: Hematocrit 34.8 % (39.0-52.0); Hemoglobin 11.4 g/dL (13.0-18.0); Mean Corp Hgb Conc. 32.8 g/dL (33.0-37.0); Mean Corpuscular Volume 87.0 fL (80.0-94.0); Platelet Count 229 10^3/uL (130-400); Red Cell Dist. Width 15.9 % (11.5-14.5)
[2025-09-20] MEDS: LIPITOR 40 MG PO (08:29)
[2025-09-20] MEDS: CALAN EXTENDED RELEASE 120 MG PO (08:29)
[2025-09-20] MEDS: MUCINEX 1200 MG PO ×2 (08:30→19:05)
[2025-09-20] MEDS: XARELTO 20 MG PO (08:30)
[2025-09-20] MEDS: PROTONIX 40 MG PO (08:30)
[2025-09-20] MEDS: ZITHROMAX 500 MG PO (08:30)
[2025-09-20] MEDS: LASIX 40 MG PO (08:30)
[2025-09-20] MEDS: FOLVITE 1 MG PO (08:30)
[2025-09-20] MEDS: VITAMIN B1 100 MG PO ×2 (08:30→19:05)
[2025-09-20] MEDS: ZESTRIL 10 MG PO (08:31)
[2025-09-20 08:46] LABS: Blood Urea Nitrogen 21 mg/dl (9-20); Calcium 9.0 mg/dl (8.4-10.2); Carbon Dioxide 32 mmol/L (22-30); Chloride 100 mmol/L (98-107); Estimated Creatinine Clearance > 125 ml/min; Glucose 146 mg/dl (70-99); Potassium 4.4 mmol/L (3.5-5.1); Sodium 136 mmol/L (135-145); eGFR > 60.00
[2025-09-20 15:00] VITALS: BP 141/70
[2025-09-20 16:42] VITALS: BP 148/82; PULSE 87; O2SAT 93
[2025-09-20] MEDS: XANAX 0.25 MG PO (21:33)
[2025-09-20 23:05] VITALS: BP 127/66
[2025-09-21] MEDS: DECADRON 4 MG IV ×2 (01:15→09:16)
[2025-09-21 06:00] VITALS: BMI 34.7
[2025-09-21 07:05] VITALS: BP 145/78
[2025-09-21] MEDS: DUONEB 3 ML INH (08:05)
[2025-09-21 08:07] VITALS: BP 145/78
[2025-09-21] MEDS: LIPITOR 40 MG PO (09:00)
[2025-09-21] MEDS: VITAMIN B1 PO ×2 (09:01→09:14)
[2025-09-21] MEDS: MUCINEX 1200 MG PO (09:01)
[2025-09-21] MEDS: XARELTO 20 MG PO (09:01)
[2025-09-21] MEDS: ZESTRIL 10 MG PO (09:01)
[2025-09-21] MEDS: CALAN EXTENDED RELEASE 120 MG PO (09:01)
[2025-09-21] MEDS: LASIX 40 MG PO (09:02)
[2025-09-21] MEDS: FOLVITE 1 MG PO (09:02)
[2025-09-21] MEDS: PROTONIX 40 MG PO (09:02)
--- NOTE | 2025-09-21 09:49 | CON.PUL ---
Consultation
Consultation Request
Date/Time Consultation Requested: 09/21/25-8 a.m.
Date/Time Consultation Performed: 09/21/2025-8:30 AM
Requesting Provider: Hospitalist
Performing Provider: Dr. Saldana
Reason for Consultation: Shortness of breath
Medical History
-
Chief Complaint: Shortness of breath
History of Present Illness:
65-year-old actively smoking and drinking male followed in the past by Dr. Kruger maintained on Trelegy and nocturnal oxygen, PAF, CHF, ambulatory dysfunction presented with increasing shortness of breath felt to have COPD exacerbation-pulmonary
consulted for shortness of breath/COPD exacerbation 09/21/2025. States that he feels better, less short of breath, still has some [place] exertion, no chest pain, chest tightness, productive cough, pleurisy, abdominal pain, increased leg swelling
or focal weakness
Past Medical History
Past Medical History: None (COPD on nocturnal oxygen. JO ANN. Cigarette smoker. PAF. Heart failure preserved EF. Hypertension.-Obesity. Colon cancer status post colon resection. Laminectomy. Cholecystectomy.)
Social History
Tobacco: Smoker (- Approximate [id number] smoking history-ongoing)
Alcohol: Daily ( few daily)
Drug: None
Occupational Exposures: No known asbestos exposure
Environmental Exposures: Tuberculosis exposure
Family History
Family History: Reviewed & Not Pertinent (Mother-lung. Father-CAD, hypertension, alcohol use disorder, throat cancer and diabetes)
Allergies / Home Medications
Allergies
Allergy/AdvReac Type Severity Reaction Status Date / Time
Beta-Blockers Allergy Anaphylaxis Verified 09/17/25 02:01
(Beta-Adrenergic Bloc
clarithromycin Allergy Rash Verified 09/17/25 02:01
(Clarithromycin)
fluticasone propionate (From Allergy mouth Verified 09/17/25 02:01
Advair Diskus) became
sensitive,
burning
salmeterol xinafoate (From Allergy mouth Verified 09/17/25 02:01
Advair Diskus) became
sensitive,
burning
Home Medications
�Medication �Instructions �Recorded �Confirmed �Last Taken �Type
atorvastatin 40 mg tablet 40 mg PO DAILY High Cholesterol 10/25/12 09/17/25 05/14/25 History
rivaroxaban 20 mg tablet (Xarelto) 20 mg PO DAILY atrial fibrillation 03/30/18 09/17/25 7 Days Ago History
~05/07/25
omeprazole 20 mg capsule,delayed 20 mg PO DAILY Gastrointestinal 10/17/18 09/17/25 05/14/25 History
release Issue
furosemide 40 mg tablet 40 mg PO DAILY Fluid 05/30/19 09/17/25 05/14/25 History
Retention/Swelling
levalbuterol HCl 1.25 mg/3 mL 1.25 mg inhalation R QID COPD 09/10/23 09/17/25 05/14/25 History
solution for nebulization
lisinopril 10 mg tablet 10 mg PO DAILY Blood Pressure 09/10/23 09/17/25 05/14/25 History
guaifenesin 600 mg tablet, 600 mg PO BID #20 tabs 09/12/23 09/17/25 05/14/25 Rx
extended release 12 hr (Mucinex)
ascorbate calcium (vitamin C) 500 1,000 mg PO DAILY Supplement 05/14/25 09/17/25 05/14/25 History
mg tablet
fluticasone fur. 100 mcg-umeclid 1 inh inhalation R DAILY 05/14/25 09/17/25 05/14/25 History
62.5 mcg-vilant 25 mcg Lung/Breathing Issues
inhalat.powder (Trelegy Ellipta)
verapamil 120 mg tablet,extended 120 mg PO DAILY Heart 05/16/25 09/17/25 Unknown History
release Disease/Condition
psyllium 1 packet PO DAILY Constipation 09/17/25 09/17/25 Unknown History
Review of Systems
-
Unable to Obtain full review of systems at this time due to: Other (Per HPI)
Vitals / Labs / Diagnostic Testing
Vital Signs
Temp Pulse Resp BP Pulse Ox
97.4 F 77 18 145/78 93
09/21/25 07:05 09/21/25 08:06 09/21/25 08:06 09/21/25 07:05 09/21/25 08:06
Lab Data
09/20/25 08:13
09/20/25 08:13
Diagnostic Testing:
Physical Exam
-
Exam:
Well-nourished and well-developed in no apparent distress
HEENT-atraumatic, normocephalic
Neck-supple, no JVD, no bruit
Heart-regular rate and rhythm-no murmurs, rubs or gallops
Chest with diminished breath sounds, prolonged expiratory time, expiratory wheezing and no crackles
Back-no tenderness
Abdomen-soft, nontender, nondistended, no hepatosplenomegaly
Extremities-no cyanosis, clubbing, edema and good peripheral pulses
Integument-intact, no rashes, lesions or ecchymosis
Neurology-alert and oriented, nonfocal motor and sensory exam
Assessment
-
65-year-old actively smoking and drinking male followed in the past by Dr. Kruger maintained on Trelegy and nocturnal oxygen, PAF, CHF, ambulatory dysfunction presented with increasing shortness of breath felt to have COPD exacerbation-pulmonary
consulted for shortness of breath/COPD exacerbation 09/21/2025.
COPD exacerbation
PAF
Chronic heart failure preserved EF
Mild normocytic anemia-hemoglobin 11.4
Conditions present prior to admission:
COPD on nocturnal oxygen.
JO ANN.
Cigarette smoker.
PAF.
Heart failure preserved EF.
Hypertension
Obesity.
Colon cancer status post colon resection.
Laminectomy. Cholecystectomy.
Plan
Respiratory decompensation in this patient with underlying significant COPD and active smoker due to COPD exacerbation
Supplemental oxygen as needed-has oxygen at home that he uses at night
Assess discharge supplemental oxygen needs prior to discharge
Decadron 4 mg IV every 8 hours-patient anxious to be discharged-consider changing to prednisone 50 mg with slow taper over the next 2 weeks as an outpatient
Continue nebulizers
Aspiration precautions
Mucolytic's
Check cultures
Azithromycin initiated empirically
Diuresis as tolerated
Diuresis note
Smoking cessation counseling
Nicotine patch-does not want to
States that he will not stop drinking and smoking
DVT prophylaxis-on Xarelto
GI prophylaxis-on pantoprazole
Nutrition
Early mobilization
Patient anxious for discharge-consider discharging on oxygen, prednisone taper, finite course of azithromycin, mucolytic's, nebulizers and inhalers
Outpatient pulmonary follow-up with Dr. Kruger-wants to come after going to [place]-patient currently on Trelegy-discussed alternative inhalers, [place] nebulizers, chronic low-dose prednisone, azithromycin,
Patient also needs yearly low-dose lung cancer screening CT, PFTs, ongoing smoking cessation counseling
Diagnostic data:
Chest x-ray 09/10/2023-NAD
Chest x-ray 05/14/2025-mild pulmonary vascular congestion
Chest x-ray 09/17/2025-NAD
CT chest low-dose 06/17/09/16 no nodules masses or signs of lung carcinoma
CT chest 10/10/2018-normal conventional pulmonary venous anatomy
Echocardiogram 10/14/2021-EF 55-60%, normal diastolic function, mild aortic regurgitation, PA systolic estimated 39
Data Reviewed
-
EKG: Report reviewed by me
Radiology: Report reviewed by me
CT Scan: Report reviewed by me
Medical Tests (Nuc Med, Echo etc): Report reviewed by me
Old Records: Reviewed
Total Time Spent with Patient (in minutes): 65
--- NOTE | 2025-09-21 11:03 | W.PN.HOSP.TC ---
Today's Communication/Plan
-
see A/P
Assessment / Plan
Assessment / Plan
HPI: 65 yo M with PMH significant for COPD, PA Fib, CHF; who presented with SOB. Patient states that he has had 'cold symptoms' with nasal congestion and chronic cough. He reported gradually worsening dyspnea over the past few weeks. He states that
he is more SOB with lying flat and he sleeps sitting up in a recliner (chronically). He is on 2 lpm of NC O2 at home at all times.
He continues to smoke 2 ppd.
Patient denies any fevers / chills. No GI or symptoms.
A/P:
# COPD Exacerbation
# Chronic Hypoxemic Respiratory Failure
Placed on 2L NC, wean as tolerated, on nocturnal home O2
COVID / Flu negative in the ED. CXR without acute infiltrate, etc.
proBNP at 81
IV steroid Decadron 4 mg IV Q8H -> 50 mg with taper
Cont DuoNeb ATC and PRN
Cont Mucinex, OK to cont Robitussin outpt
s/p Azithromycin x3 days for COPD, can hold further
Procal is neg hence low suspicion of bacterial pneumonia
Continue vest therapy
Follow for clinical improvement.
Encourage smoking cessation - though patient does not appear motivated to quit.
Pulmonary consulted as patient still needing O2 during the day and still wheezing, patient sees Dr. Kruger outpatient
# Possible anxiety vs steroid effect
low dose Xanax x1 dose, informed pt and RN of cautious use
# Paroxysmal Atrial Fibrillation, Stable.
Continue current med regimen including Xarelto.
# Chronic HFpEF, Stable.
Does not appear grossly volume overloaded.
Continue Lasix dose.
Follow I/Os, daily weights, etc.
# Benign Hypertension, Stable.
Continue verapamil and lisinopril with holding parameters.
DVT Prophylaxis: On Xarelto
Code Status: Full
Anticipated Discharge: Within 24 hours
Subjective/Interval History
-
Date of Service: September 21, 2025
Objective Data
-
Vital Signs:
Vital Signs
Temp Pulse Resp BP Pulse Ox
36.3 C 77 18 145/78 93
09/21/25 07:05 09/21/25 08:06 09/21/25 08:06 09/21/25 07:05 09/21/25 08:06
I&O
09/20/25 09/21/25 09/22/25
06:59 06:59 06:59
Intake Total 1200 / 1200 1560 / 1560
Balance 1200 / 1200 1560 / 1560
Review of Systems
-
History Source: Patient
All other systems: Reviewed and negative
Respiratory: Reports Cough (chronic and mild)
Physical Exam
-
General: Well Developed, Well Nourished, Comfortable, Respiratory Distress (Chronic) and Conversant
HEENT: Normocephalic, Atraumatic and Oxygen (2L NC)
Respiratory: Wheezes (chronic per pt , improved and almost resolved ) and Non Labored Respirations; Negative Accessory Resp Muscle Use
Cardiac: Regular Rhythm and S1/S2
Neuro: Awake and Alert
Psych: Calm and Intact Judgement/Insight
Data Reviewed
-
Diagnostic Radiology: Report Reviewed by me
Labs: Labs Reviewed by me
--- NOTE | 2025-09-21 11:24 | CM ---
Patient seen at bedside on . Patient is for discharge home with no needs anticipated. Patient stated that he does not have MC so, no IMM provided. CM will continue to follow for discharge planning needs.
Plan; home with no needs.
[2025-09-21 11:33] VITALS: BP 157/79
[2025-09-21] MEDS: DUONEB INH (11:42)
--- NOTE | 2025-09-21 14:08 | W.DCSUMMARY ---
Discharge Summary
Discharge Data
Date of Admission: 09/17/25
Date of Discharge: 09/21/25
Total time spent discharging patient (in min): 40
-
Pending Results: No
Hospital Course
Principal Diagnosis:
COPD Exacerbation
Chronic Diagnoses:�
Chronic Hypoxemic Respiratory Failure
Paroxysmal Atrial Fibrillation, Stable.
Chronic HFpEF, Stable.
Benign Hypertension, Stable. Continue verapamil and lisinopril
Consultations:�
None
Procedures:�
None
Clinical course:�
This is a 65-year-old male with past medical history as stated above, who presented with shortness of breath.
Problem 1:
COPD Exacerbation.
He has chronic hypoxic respiratory failure and has been on 2 L nasal cannula while in the hospital. The patient uses nocturnal home oxygen prior to admission.
His COVID / Flu tests were negative, and his CXR was without acute infiltrate.
He was treated with IV steroid Decadron 4 mg IV Q8H while in the hospital, and he was discharged with prednisone starting at 50 mg with taper.
He also received azithromycin for 3 days for COPD exacerbation while in the hospital.
He can continue with Mucinex/Robitussin outpatient.
Procalcitonin was checked which was negative hence unlikely to have concomitant bacterial pneumonia.
He was advised to quit smoking and smoking cessation counseling can be continued outpatient.
He can follow-up with pulmonology outpatient following discharge.
As for the rest of his medical problems, they were stable during his hospital stay.
Discharge Plan
-
Patient Disposition: Home (Routine Discharge)
Discharge Diagnosis/Procedures: Acute COPD exacerbation,
Active smoking/ nicotine dependence
Condition: Fair
Diet: As tolerated
Activity: As tolerated
Driving Restrictions: As prior to admission
Referrals:
Ritesh Nobles MD [Active, Pulmonary Medicine] - in four to six weeks
Referral Note: PFTs, 6-minute walk test-only wants to see physician
Mark Norwood MD [Family Provider, Internal Medicine] - in less than 1 week
Additional Discharge Medication Instructions: Continue steroid/prednisone taper as instructed
Prescriptions:
New
prednisone 10 mg Tablet
See Rx Instructions .ROUTE .COMPLEX Qty: 45 0RF
Rx Instructions:
Take By Mouth:
50 mg daily x3 days, 40 mg daily x3 days,
30 mg daily x3 days, 20 mg daily x3 days,
10 mg daily x3 days
Continued
atorvastatin 40 MG tablet
40 mg PO DAILY
Xarelto 20 MG tablet
20 mg PO DAILY
omeprazole 20 MG capsule,delayed release(DR/EC)
20 mg PO DAILY
furosemide 40 MG tablet
40 mg PO DAILY
lisinopril 10 mg Tablet
10 mg PO DAILY
levalbuterol HCl 1.25 MG/3 ML solution for nebulization
1.25 mg inhalation R QID
guaifenesin [Mucinex] 600 mg tablet extended release 12hr
600 mg PO BID Qty: 20 0RF
ascorbate calcium (vitamin C) 500 mg Tablet
1,000 mg PO DAILY
Trelegy Ellipta 100-62.5-25 mcg Blister With Device
1 inh INHALATION R DAILY
verapamil 120 mg Tablet Extended Release
120 mg PO DAILY
psyllium Packet
1 packet PO DAILY
Discharge Orders:
Discharge Patient (As Directed); Ordered 09/21/25
Ordered By: Deidre Beaulieu
Discharge Date and Time
Discharge Date/Time: 09/21/25 12:22
Print Language: VENEZUEL[place]
== END 2025-09-21 12:22 | disposition home or self-care (01) | DRG 191 ==
LOC: 2 NORTH 05:28
PROVIDERS: Hospitalist; ADMITTING PHYSICIAN Hospitalist; ATTENDING PHYSICIAN Internal Medicine; EMERGENCY PHYSICIAN Emergency Medicine; FAMILY PHYSICIAN Internal Medicine; OTHER PHYSICIAN Internal Medicine Critical Care Medicine
DX: J44.1 Chronic obstructive pulmonary disease with (acute) exacerbation (principal); I50.32 Chronic diastolic (congestive) heart failure; J96.11 Chronic respiratory failure with hypoxia; I48.0 Paroxysmal atrial fibrillation; I11.0 Hypertensive heart disease with heart failure; Z99.81 Dependence on supplemental oxygen; F17.210 Nicotine dependence, cigarettes, uncomplicated; E78.00 Pure hypercholesterolemia, unspecified; G47.33 Obstructive sleep apnea (adult) (pediatric); K21.9 Gastro-esophageal reflux disease without esophagitis; E66.9 Obesity, unspecified; D64.9 Anemia, unspecified; F41.9 Anxiety disorder, unspecified; Z11.52 Encounter for screening for COVID-19; Z68.34 Body mass index [BMI] 34.0-34.9, adult
CPT/HCPCS: 71045; 80048; 80053; 82805; 83605; 83880; 84145; 84484; 85025; 85027; 87502; 87811; 93005; 94640; 94644; 94669; 94761; 96374; 96375; 97162; 99291